=== PATIENT | female | born 2005 | race Caucasian/White ===

== ENCOUNTER 2023-05-08 15:45 | Inpatient (IN) | payer BC, SELFPAY ==
[2023-05-08] VITALS (33 sets, daily range): BP systolic 97–160; BP diastolic 44–93; PULSE 65–107; TEMP 36.3–36.6; BMI 36.9
--- NOTE | 2023-05-08 15:45 | LDADM ---
This patient, Olga Mark, was admitted to Labor/Delivery/Recovery 104 on 05/08/23 at 15:45. Plans for labor, pain management and were discussed with patient. Patient/family oriented to hospital policies and general routines including ID bracelet, bed and alarms, visiting hours, pain management, procedures, bathroom and other care routines, personal items, smoking policy, room service/diet and guest tray routines, infant security routines, and visiting hours. Patient/Family are encouraged to report perceived risks to care and to ask questions if they do not understand what they are told or what they should do. See OBIX for further documentation.
[2023-05-08 16:25] LABS: Basophils Percent Auto 0.2 % (0.2-1.2); Eosinophils Percent Auto 0.2 % (0-4.4); Hematocrit 33.5 % (37.0-47.0); Hemoglobin 10.7 g/dL (12.0-15.0); Immature Granulocyte Absolute 0.05 K/mm3 (0.00-0.031); Immature Granulocyte Percent A 0.5 % (0-0.5); Lymphocytes Absolute Auto 2.38 K/mm3 (0.9-3.2); Lymphocytes Percent Auto 21.6 % (18.3-44.2); Mean Corpuscular HGB Conc 31.9 g/dl (32-36); Mean Corpuscular Hemoglobin 25.8 pg (26-34); Mean Corpuscular Volume 80.7 fl (80-100); Mean Platelet Volume 11.7 fl (7.4-10.4); Monocytes Absolute Auto 0.8 K/mm3 (0.1-0.6); Monocytes Percent Auto 7.2 % (2.6-8.5); Neutrophils Absolute Auto 7.8 K/mm3 (1.3-6.7); Neutrophils Percent Auto 70.3 % (45.5-73.1); Platelet Count Result 226 k/mm3 (150-375); Red Blood Count 4.15 M/mm3 (4.2-5.4); Red Cell Distribution Width 14.4 % (11.5-14.5)
[2023-05-08] MEDS: miSOPROStol 25 MCG TABLET PO (16:43)
[2023-05-08] MEDS: OXYTOCIN 30 UNITS/NS 500 ML 30 UNITS/500 ML BAG IV CONT (21:30)
[2023-05-08] MEDS: LACTATED RINGERS 1,000 ML 125 ML IV CONT (21:30)
[2023-05-09] VITALS (171 sets, daily range): BP systolic 97–145; BP diastolic 49–97; PULSE 55–145; RESP 18; TEMP 36.5–37.2; O2SAT 95–100
[2023-05-09] MEDS: LACTATED RINGERS 1,000 ML 125 ML IV CONT (04:45)
[2023-05-09] MEDS: OXYTOCIN 30 UNITS/NS 500 ML 30 UNITS/500 ML BAG IV CONT (05:01)
--- NOTE | 2023-05-09 07:14 | PM.IMHP ---
H&P: HPI History of Present Illness Date/Time: 05/09/23 07:14 Chief Complaint: induction of labor Narrative: Olga is a 17yo G1 at 39.3 for IOL. Received cytotec x1 last night, then pitocin overnight. GBS neg. complicated by LGA. Unable to nut picker contractions overnight so RN switched bag of pitocin and started over at 2mu. Review of Systems Review of Systems: All systems reviewed & are unremarkable except as noted in HPI and below PMFSH Family History Family History (Updated 04/18/23 @ 12:22 by Angela Holguin, JOSH) Other Unknown family medical history Social History Social History Smoking status: Former smoker Tobacco type: e-cigarettes/vaping Additional smoking assessment comments: 2 years of vaping Substance use: never Lack of Transportation: No Lack of Food: Never True Current Housing: I Have Housing Concerned About Future Housing: No Difficulty Paying Gas/Electric Bills: No Difficulty Paying for Meds: No Currently Unemployed: No Education: High School Diploma/GED Difficulty w/ Childcare or Family Care: No Spiritual care concerns: No Meds Home Medications and Allergies Home Medications Medication Instructions Recorded Confirmed Type vit#24-iron amino acid 1 tablet PO DAILY 04/18/23 04/18/23 History chelat-folic acid 30 mg-975 mcg tablet Allergies Allergy/AdvReac Type Severity Reaction Status Date / Time No Known Allergies Allergy Verified 04/18/23 12:20 Vital Signs Vital Signs - 24 hr 05/08/23 16:28 05/08/23 16:32 05/08/23 16:46 Temperature Pulse Rate 107 H 92 80 Blood Pressure 120/80 109/73 124/73 Oxygen Delivery 05/08/23 17:01 05/08/23 17:16 05/08/23 17:31 Temperature Pulse Rate 93 89 89 Blood Pressure 128/70 129/54 L 109/65 Oxygen Delivery 05/08/23 17:46 05/08/23 18:01 05/08/23 18:00 Temperature 97.3 F L Pulse Rate 89 76 Blood Pressure 125/68 118/67 Oxygen Delivery 05/08/23 18:16 05/08/23 18:31 05/08/23 18:48 Temperature Pulse Rate 89 74 69 Blood Pressure 129/79 137/74 104/68 Oxygen Delivery 05/08/23 19:01 05/08/23 19:16 05/08/23 19:31 Temperature Pulse Rate 76 71 74 Blood Pressure 130/67 136/73 136/75 Oxygen Delivery 05/08/23 19:46 05/08/23 20:01 05/08/23 20:16 Temperature Pulse Rate 65 75 88 Blood Pressure 110/44 L 133/77 131/84 Oxygen Delivery 05/08/23 20:31 05/08/23 20:46 05/08/23 16:45 Temperature Pulse Rate 77 78 Blood Pressure 135/83 133/78 Oxygen Delivery Room Air 05/08/23 21:01 05/08/23 21:31 05/08/23 20:00 Temperature 98 F Pulse Rate 81 72 Blood Pressure 124/73 144/93 H Oxygen Delivery 05/08/23 21:46 05/08/23 22:03 05/08/23 22:16 Temperature Pulse Rate 74 69 80 Blood Pressure 160/93 H 97/55 L 111/69 Oxygen Delivery 05/08/23 22:31 05/08/23 22:46 05/08/23 23:01 Temperature Pulse Rate 74 74 67 Blood Pressure 118/73 115/78 118/65 Oxygen Delivery 05/08/23 23:16 05/08/23 23:31 05/08/23 23:46 Temperature Pulse Rate 71 68 70 Blood Pressure 126/72 113/64 117/68 Oxygen Delivery 05/09/23 00:02 05/09/23 00:16 05/09/23 00:31 Temperature Pulse Rate 64 63 63 Blood Pressure 109/54 L 125/77 120/73 Oxygen Delivery 05/09/23 00:46 05/09/23 01:01 05/09/23 01:16 Temperature Pulse Rate 71 68 76 Blood Pressure 122/73 134/79 114/72 Oxygen Delivery 05/09/23 01:31 05/09/23 01:46 05/09/23 02:01 Temperature Pulse Rate 87 85 65 Blood Pressure 116/74 129/88 117/74 Oxygen Delivery 05/09/23 02:16 05/09/23 02:31 05/09/23 02:46 Temperature Pulse Rate 55 L 64 58 L Blood Pressure 128/84 129/86 130/86 Oxygen Delivery 05/09/23 03:01 05/09/23 03:16 05/09/23 03:31 Temperature Pulse Rate 58 L 58 L 65 Blood Pressure 128/72 129/72 128/80 Oxygen Delivery 05/09/23 03:46 05/09/23 04:01 05/09/23 04:16 Temperature Pulse Rate 72 66 71
[2023-05-09] MEDS: LACTATED RINGERS 1,000 ML 999 ML IV CONT (10:16)
--- NOTE | 2023-05-09 10:54 | WPDANESEPPF ---
Anes - Initial Pre Proc Eval Procedure: labor epidural Date/Time: 05/09/23 10:54 Surgeon: Meenu Palomares MD Pre Op Diagnosis: labor pain Pre Op Diagnosis: Induction of Labor Patient Data Age: 17 Gender: F Height: 1.7 m Weight: 107 kg Last Vital Signs Temp 36.5 C 05/09/23 10:36 Pulse 75 05/09/23 10:51 BP 122/72 05/09/23 10:51 Pulse Ox 97 05/09/23 10:52 O2 Del Method Room Air 05/08/23 16:45 Allergies Allergy/AdvReac Type Severity Reaction Status Date / Time No Known Allergies Allergy Verified 04/18/23 12:20 Home Medications Medication Instructions Recorded Confirmed Type vit#24-iron amino acid 1 tablet PO DAILY 04/18/23 04/18/23 History chelat-folic acid 30 mg-975 mcg tablet Laboratory Tests 05/08/23 16:07 WBC 11.0 H K/mm3 (4.5-10.0) RBC 4.15 L M/mm3 (4.2-5.4) Hgb 10.7 L g/dL (12.0-15.0) Hct 33.5 L % (37.0-47.0) MCV 80.7 fl (80-100) MCH 25.8 L pg (26-34) MCHC 31.9 L g/dl (32-36) RDW 14.4 % (11.5-14.5) Plt Count 226 k/mm3 (150-375) MPV 11.7 H fl (7.4-10.4) Immature Gran % (Auto) 0.5 % (0-0.5) Neut % (Auto) 70.3 % (45.5-73.1) Lymph % (Auto) 21.6 % (18.3-44.2) [place] % (Auto) 7.2 % (2.6-8.5) Eos % (Auto) 0.2 % (0-4.4) Baso % (Auto) 0.2 % (0.2-1.2) Lymph # (Auto) 2.38 K/mm3 (0.9-3.2) [place] # (Auto) 0.8 H K/mm3 (0.1-0.6) Eos # (Auto) 0.0 K/mm3 (0-0.3) Baso # (Auto) 0.0 K/mm3 (0.0-0.1) Abs Immat Gran (auto) 0.05 H K/mm3 (0.00-0.031) Absolute Neuts (auto) 7.8 H K/mm3 (1.3-6.7) Absolute Nucleated RBC 0.0 K/mm3 (0.0-0.012) Nucleated RBC % 0.0 % (0.0-0.2) RPR Pending Blood Type O Positive Antibody Screen Negative Patient hx anesthesia problems: none Family hx anesthesia problems: none Results Review: All pre-operative results and documents have been reviewed as part of the pre-operative evaluation. [facility] Family History Family History (Updated 04/18/23 @ 12:22 by Angela Holguin RN) Other Unknown family medical history Social History Social History Smoking status: Former smoker Tobacco type: e-cigarettes/vaping Additional smoking assessment comments: 2 years of vaping Substance use: never Lack of Transportation: No Lack of Food: Never True Current Housing: I Have Housing Concerned About Future Housing: No Difficulty Paying Gas/Electric Bills: No Difficulty Paying for Meds: No Currently Unemployed: No Education: High School Diploma/GED Difficulty w/ Childcare or Family Care: No Spiritual care concerns: No Anes - Eval Final PreProcedure Day of Procedure 05/09/23 10:54 Patient weight: obese ASA classification: II Anesthetic plan: proceed Anesthesia type and monitoring: regional epidural and standard monitoring Results Review: All pre-operative results and documents have been reviewed as part of the pre-operative evaluation. Informed Consent: The patient's anesthetic plan and its attendant risks and benefits were discussed with the patient/family/POA. Questions were solicited and answers provided to the satisfaction of the patient/family/POA.
[2023-05-09 15:36] LABS: Rapid Plasma Reagin Non-Reactive (NonReactive)
--- NOTE | 2023-05-09 17:28 | P.PCNOB_ITS ---
OB - Delivery Note Procedure Delivery date: 05/09/23 Procedure: Events: Elective Induction of Labor Intrapartal Events: Decelerations Induction method: AROM, Per Misoprostol Protocol and Per Pitocin Protocol Delivery augmentation: Rupture of Membranes Delivery monitor: External FHT and Internal Uterine Route of delivery: Episiotomy description: None Laceration Description: Perineal - 1st Degree Delivery repair: vicryl Quantitative Blood Loss (ml): 180 Anesthesia type: Epidural Disposition: Floor Complications: shoulder dystocia, see delivery note Narrative: With adequate expulsive efforts by the mother, the baby's head was delivered OA. The turtle sign was identified and shoulder dystocia was encountered. A nuchal cord was reduced. With McRobert's and suprapubic pressure the anterior shoulder was delivered under the pubic symphysis. The posterior shoulder and the rest of the baby delivered without difficulty. Shoulder dystocia was less than 20 seconds. The was placed on the mothers chest and suctioned and stimulated. The cord was clamped and cut after 30 seconds. Mother and baby both stable. [place] Baby Date of : 05/09/23 Time of : 17:11 Weeks of gestation at delivery: 39 Infant gender: Male Weight (pounds): 8 Weight (ounces): 5 presentation: vertex Placenta delivery description: Spontaneous Cord Vessel Description: 3 Vessels, Nuchal Cord and Clamped/Cut score one minute: 8 score five minutes: 9
[2023-05-09] MEDS: OXYTOCIN 30 UNITS/NS 500 ML 30 UNITS/500 ML BAG 125 UNITS IV CONT (17:39)
[2023-05-09] MEDS: WITCH HAZEL 40 PADS 1 PAD TOPICAL (19:45)
[2023-05-09] MEDS: BENZOCAINE 20% AER SPR (*SP) 56 GM CAN 1 SPRAY TOPICAL (19:45)
--- NOTE | 2023-05-09 19:50 | ADMGEN ---
This patient, Olga Mark, was admitted to OB 2nd Floor Room 286-00. Patient/family oriented to hospital policies and general routines including ID bracelet, bed and alarms, visiting hours, pain management, procedures, bathroom and other care routines, personal items, smoking policy, room service/diet, and visiting hours. Information on how to activate the Rapid Response Team has been discussed. Patient/Family are encouraged to report perceived risks to care and to ask questions if they do not understand what they are told or what they should do.
[2023-05-10 05:04] LABS: Hematocrit 31.5 % (37.0-47.0)
[2023-05-10] MEDS: DOCUSATE SODIUM 100 MG CAPSULE PO ×2 (07:19→17:27)
[2023-05-10] MEDS: MULTIVIT/MIN/PREN/FOL AC/IRON TABLET 1 TAB PO (07:19)
[2023-05-10] MEDS: IBUPROFEN 600 MG TABLET PO ×2 (07:19→17:27)
[2023-05-10] MEDS: LANOLIN (LANSINOH) 7.5 GM CREAM 1 APPLIC TOPICAL (07:20)
[2023-05-10 07:35] VITALS: BP 135/101; PULSE 74; RESP 16; TEMP 35.8; O2SAT 98
--- NOTE | 2023-05-10 09:52 | PM.OBPNVD ---
OB - PN: Subj Subjective Date/time seen: 05/10/23 09:52 Patient comments: no complaints, pain well controlled and tolerating diet [place] baby status: doing well and nursing well [place] feeding status: exclusively breast feeding OB - PN: Obj Data Labs 05/10/23 04:35 Labs: Laboratory Results - last 24 hr 05/08/23 05/10/23 16:07 04:35 Hgb 10.0 L Hct 31.5 L RPR Non-reactive OB - PN A/P Plan day: 1 Plan: routine care Comments: consented for circumcision and circumcision completed home tomorrow Time Spent With Patient Time: Total time spent is greater than 50% in coordination of care (as documented) at patient's floor/unit and/or counseling patient: Time with patient: less than 15 minutes Exam Narrative: NAD abdomen soft, nontender, fundus firm below the umbilicus Extremities nontender, 1+ edema
--- NOTE | 2023-05-10 12:09 | PC.NURSE ---
1135 - 1140 Purposefully rounded to introduce myself and assess latch that the Primary RN had assisted with. Visualized mother holding infant upright over her right shoulder patting infant. Assess mother for needs and mother states infant didn't stay latched and they just fed the infant part of a bottle. Resources provided for inpatient services with name written on the white board. Mother voiced understanding of information and will call if there is a request for assistance. Reported to the primary RN.
[2023-05-10 12:13] VITALS: BP 118/71; PULSE 67; RESP 16; TEMP 36.7; O2SAT 100
--- NOTE | 2023-05-10 16:27 | WPDANLDPN2 ---
Anes-Prog Note L&D Date/Time: 05/10/23 16:27 Comfortable throughout: labor and delivery Neuraxial method: epidural Epidural/Spinal procedure site: clean & non-tender Neuro status: Neuro function grossly intact. Cardiovascular status: normal Respiratory status: normal Airway patency: baseline Mental status: baseline Post-Op hydration status: normal Vital Signs: Last Vital Signs Temp 36.7 C 05/10/23 12:13 Pulse 67 05/10/23 12:13 Resp 16 05/10/23 12:13 BP 118/71 05/10/23 12:13 Pulse Ox 100 05/10/23 12:13 O2 Del Method Room Air 05/09/23 19:50 Pain score (VAS): 3/10 Post-procedural complaints: none Patient feedback: Patient satisfied with anesthetic care.
[2023-05-10] MEDS: WITCH HAZEL 40 PADS 1 PAD TOPICAL (17:26)
[2023-05-10 20:45] VITALS: BP 137/89; PULSE 66; RESP 18; TEMP 36
[2023-05-11] MEDS: IBUPROFEN 600 MG TABLET PO ×2 (01:54→11:04)
--- NOTE | 2023-05-11 04:28 | PM.OBPNVD ---
OB - PN: Subj Subjective Date/time seen: 05/11/23 04:28 doing well no complaints would like d/c home OB - PN: Obj Data Labs 05/10/23 04:35 Labs: Laboratory Results - last 24 hr 05/10/23 04:35 Hgb 10.0 L Hct 31.5 L OB - PN A/P Plan day: 2 Plan: routine care and discharge home Time Spent With Patient Time: Total time spent is greater than 50% in coordination of care (as documented) at patient's floor/unit and/or counseling patient: Review of Systems Review of Systems: All systems reviewed & are unremarkable except as noted in HPI and below Exam Const: General: cooperative and healthy appearing Chest: Chest palpation & inspection: normal inspection of the chest Resp: Effort & Inspection: normal respiratory effort Cardio: Rate: regular rate Rhythm: regular rhythm GI: Other: soft Skin: General skin exam: normal color Neuro: General: patient oriented x3 Extrem: Right lower extremity: normal to inspection Left lower extremity: normal to inspection
--- NOTE | 2023-05-11 04:30 | PC.NURSE ---
Patient instructed to view the discharge video Mother & Baby Care, The First Two Weeks . Patient was given the opportunity and encouraged to ask questions. Patient verbalized understanding of information shared and has been given the mother/baby guide for home reference.
--- NOTE | 2023-05-11 04:31 | PM.OBDSVD ---
DS: Admitting Diagnosis Discharge Date 05/11/23 Admitting Diagnosis IOL DS: Discharge Diagnosis Discharge Diagnosis (1) Vaginal delivery: Code(s): O80 - Encounter for full-term uncomplicated delivery Status: Acute OB - DS: Summary OB Procedures : None OB Procedures Intrapartum: Spontaneous Vag Delivery OB Procedures: : None Time Spent with Patient Time attestation: Total time spent providing and/or coordinating discharge services: DS: Data Data Completed and Pending Labs on day of discharge: Labs from last 24 hours 05/10/23 04:35 Hgb 10.0 L Hct 31.5 L Discharge Plan Discharge Attending physician on discharge: Velia Louis Discharging Clinician: Chelsie Hebert Patient Disposition: Home, Self-Care Activity: pelvic rest Diet: regular Patient Instructions: Antibiotic Form Stand Alone Forms: General Discharge Information Follow-up/Referrals: Meenu Palomares MD [Physician] - 4 Weeks Discharge Medications: New ibuprofen 600 mg Tablet 600 mg PO Q6H PRN (Reason: Cramping) Qty: 30 0RF Continued Complete 30-975 mg-mcg Tablet 1 tablet PO DAILY Date of admission: 05/08/23 15:45 Primary Care Provider: PHYSICIAN,TARIFF COMPILING CLERK Admitting Provider: Meenu Palomares Attending physician on admission: Meenu Palomares Condition: Stable
--- NOTE | 2023-05-11 07:00 | PC.NURSE ---
PT introductions made and plan of care discussed per post , pain management, breast bottle feeding, daily care activities and pending discharge to home. PT and fob both recipients of such instructions and no barriers to learning identified at this time. PT received such instructions per one to one discussion, mom baby care guide and demonstrations this shift. PT verbalized understanding of such care.
[2023-05-11 07:25] VITALS: BP 131/86; PULSE 81; RESP 16; TEMP 36.5; O2SAT 100
[2023-05-11 10:30] VITALS: PULSE 81; RESP 16; O2SAT 100
[2023-05-11] MEDS: ACETAMINOPHEN 325 MG TABLET 650 MG PO (11:03)
[2023-05-11] MEDS: MULTIVIT/MIN/PREN/FOL AC/IRON TABLET 1 TAB PO (11:04)
[2023-05-11] MEDS: DOCUSATE SODIUM 100 MG CAPSULE PO (11:04)
--- NOTE | 2023-05-11 13:00 | PC.NURSE ---
PT received discharge instructions per protocol and verbalized understanding of such care.
--- NOTE | 2023-05-11 13:30 | PC.NURSE ---
PT discharged to home ambulatory accompanied by fob and infant and taken to waiting car. Follow up appts confirmed
[2023-05-12 08:21] VITALS: BP 129/71; PULSE 67; RESP 16; TEMP 36.7; O2SAT 100
== END 2023-05-11 13:30 | disposition home or self-care (01) | DRG 807 ==
LOC: ANHLDR 15:50 → ANHOB2 05-09 20:05
PROVIDERS: Admitting Provider Obstetrics & Gynecology; Visit Provider Obstetrics & Gynecology
DX: O36.63X0 Maternal care for excessive fetal growth, third trimester, not applicable or unspecified (principal); Z37.0 Single live birth; O70.0 First degree perineal laceration during delivery; O76 Abnormality in fetal heart rate and rhythm complicating labor and delivery; O66.0 Obstructed labor due to shoulder dystocia; O69.81X0 Labor and delivery complicated by cord around neck, without compression, not applicable or unspecified; Z3A.39 39 weeks gestation of pregnancy
CPT/HCPCS: 36415; 85014; 85018; 85025; 86592; 86850; 86900; 86901; A9270; J2590; J2795; J7120

== ENCOUNTER 2023-11-21 15:40 | Emergency (ER) | payer BC, SELFPAY ==
--- NOTE | ~2023-11-21 | XR_ITS ---
XR ankle RT min 3V DATE: 11/21/2023 16:13 INDICATION: Injury TECHNIQUE: 4 views COMPARISON: None FINDINGS: No fracture or dislocation of the ankle or disruption of the ankle mortise. No periosteal r eaction or bone destruction. IMPRESSION: Negative Reviewed, dictated and finalized at location L. IMPRESSION: Negative
[2023-11-21 15:54] VITALS: BP 140/100; PULSE 80; RESP 17; TEMP 36.6; O2SAT 100
--- NOTE | 2023-11-21 16:20 | ED.LOWEXIN ---
HPI - Extremity Injury (Lower) General Chief Complaint: Extremity Injury, Lower Stated Complaint: right ankle pain Time Seen by Provider: 11/21/23 16:19 Source: patient Mode of arrival: ambulatory Limitations: no limitations History of Present Illness HPI Narrative: Patient is a 18-year-old female who presents the ED with report of right ankle pain. Patient reports she missed a step on her stairs at her house and her right ankle bent backwards underneath of her. She complains of pain and swelling to her right ankle. Reports difficulty ambulating due to pain. Denies numbness. Denies any other injuries or areas of pain. She took Advil prior to arrival. Related Data Home Medications Medication Instructions Recorded Confirmed vit#24-iron amino acid 1 tablet PO DAILY 04/18/23 04/18/23 chelat-folic acid 30 mg-975 mcg tablet Allergies Allergy/AdvReac Type Severity Reaction Status Date / Time No Known Allergies Allergy Verified 11/21/23 15:41 Review of Systems Review of Systems: CONSTITUTIONAL: Denies fever, chills, or sweats. MUSCULOSKELETAL: See HPI. NEUROLOGIC: Denies numbness, or weakness. All systems reviewed & are unremarkable except as noted in HPI and below [facility] Family History Family History Other Unknown family medical history Social History Social History Smoking status: Former smoker Tobacco type: e-cigarettes/vaping Additional smoking assessment comments: 2 years of vaping Substance use: never Lack of Transportation: No Lack of Food: Never True Current Housing: I Have Housing Concerned About Future Housing: No Difficulty Paying Gas/Electric Bills: No Difficulty Paying for Meds: No Currently Unemployed: No Education: High School Diploma/GED Difficulty w/ Childcare or Family Care: No Spiritual care concerns: No Exam Narrative: GENERAL: Well appearing, obese with BMI of 33.7, non-toxic, in no acute distress. HEAD: Normocephalic, atraumatic. RESPIRATORY: Airway patent, respirations nonlabored. CARDIOVASCULAR: Regular rate and rhythm. Pedal pulses easily palpable. MUSCULOSKELETAL: Moves all extremities. Limited range of motion of right ankle due to pain. Swelling to R ankle lateral malleoli and across anterolateral dorsal foot. Diffuse tenderness to palpation throughout R lateral malleoli. No significant tenderness along medial malleoli or along 5th metatarsal. No tenderness to right knee. SKIN: Warm, dry, normal color. NEURO: A&O X3. Speech clear. Mildly antalgic gait. No ataxic movements. PSYCHIATRIC: Appropriate mood and affect. Normal interaction. Course Vital Signs Vital signs: Vital Signs Temperature 97.8 F 11/21/23 15:54 Pulse Rate 80 11/21/23 15:54 Respiratory Rate 17 11/21/23 15:54 Blood Pressure 140/100 H 11/21/23 15:54 Pulse Oximetry 100 11/21/23 15:54 Oxygen Delivery Room Air 11/21/23 15:54 Temperature 97.8 F 11/21/23 15:54 Pulse Rate 80 11/21/23 15:54 Respiratory Rate 17 11/21/23 15:54 Blood Pressure 140/100 H 11/21/23 15:54 Pulse Oximetry 100 11/21/23 15:54 Oxygen Delivery Room Air 11/21/23 15:54 MDM - Extremity Injury (Lower) MDM Narrative Medical decision making narrative: Patient?s injury is consistent with musculoskeletal etiology. No signs of neurologic or vascular compromise on physical examination. Compartments are soft without signs of compartment syndrome. XR negative for fracture, consistent with ankle sprain. Patient is felt to be stable for discharge home and further outpatient management and treatment. Given Bishop bandage and crutches in the ED. Discussed rice treatment, follow-up with orthopedics, given return precautions. Discharged in stable condition. Medical Records Attestation: I reviewed the patient's medical records. [facility]
[2023-11-21] MEDS: ACETAMINOPHEN 500 MG TABLET 1000 MG PO (16:32)
== END 2023-11-21 16:41 | disposition home or self-care (01) ==
LOC: ANHED 16:35
PROVIDERS: Emergency Provider Physician Assistant; Referring Provider Family Medicine
DX: S93.401A Sprain of unspecified ligament of right ankle, initial encounter (principal); Z87.891 Personal history of nicotine dependence; X50.9XXA Other and unspecified overexertion or strenuous movements or postures, initial encounter
CPT/HCPCS: 73610; 99283; A9270

== ENCOUNTER 2024-04-17 13:43 | Outpatient (CLI) | payer BC, SELFPAY ==
[2024-04-17 14:42] LABS: Basophils Percent Auto 0.3 % (0.2-1.2); Eosinophils Absolute Auto 0.1 K/mm3 (0-0.3); Eosinophils Percent Auto 0.5 % (0-4.4); Hematocrit 38.9 % (37.0-47.0); Immature Granulocyte Absolute 0.03 K/mm3 (0.00-0.031); Immature Granulocyte Percent A 0.3 % (0-0.5); Lymphocytes Absolute Auto 3.61 K/mm3 (0.9-3.2); Lymphocytes Percent Auto 37.8 % (18.3-44.2); Mean Corpuscular HGB Conc 33.4 g/dl (32-36); Mean Corpuscular Hemoglobin 27.5 pg (26-34); Mean Corpuscular Volume 82.2 fl (80-100); Mean Platelet Volume 11.3 fl (7.4-10.4); Monocytes Absolute Auto 0.6 K/mm3 (0.1-0.6); Monocytes Percent Auto 6.2 % (2.6-8.5); Neutrophils Absolute Auto 5.3 K/mm3 (1.3-6.7); Neutrophils Percent Auto 54.9 % (45.5-73.1); Platelet Count Result 261 k/mm3 (150-375); Red Blood Count 4.73 M/mm3 (4.2-5.4); Red Cell Distribution Width 12.6 % (11.5-14.5); White Blood Count 9.6 K/mm3 (4.5-10.0)
[2024-04-17 14:49] LABS: Alanine Aminotransferase 29 U/L (6-35); Albumin Level 4.5 g/dL (3.5-5.1); Alkaline Phosphatase 80 U/L (38-126); Anion Gap 15 mmol/L (4-12); Aspartate Amino Transferase 45 U/L (14-36); Bilirubin,Total 0.2 mg/dL (0.2-1.3); Blood Urea Nitrogen 12 mg/dL (7-17); Calcium 9.4 mg/dL (8.4-10.2); Carbon Dioxide 20 mmol/L (22-30); Chloride 104 mmol/L (98-107); Cholesterol 203 mg/dL (0-200); Estimated Glomerular Filt Rate > 60; Glucose 100 mg/dL (65-110); HDL Direct 45 mg/dL; Potassium 3.5 mmol/L (3.4-5.0); Sodium 139 mmol/L (137-145); Triglycerides 472 mg/dL (<150)
[2024-04-17 15:00] LABS: LDL Cholesterol Direct 99 mg/dL
[2024-04-17 15:04] LABS: Hemoglobin A1C 5.2 % (<5.7)
[2024-04-17 15:15] LABS: Iron 43 ug/dL (37-170)
[2024-04-17 15:26] LABS: Percent Iron Saturation 10 % (20-50)
[2024-04-17 15:41] LABS: Add Urine Microscopic? YES; Appearance Urine Clear (Clear); Bacteria Urine Rare /hpf; Bilirubin Urine Negative (Negative); Blood Urine Negative (Negative); Color Urine Yellow (Yellow); Glucose Urine UA Negative (Negative); Ketones Urine Negative (Negative); Leukocyte Esterase Ur Trace LEU/UL (Negative); Nitrate Urine Negative (Negative); Non Pathogenic Casts 0-2; Protein Urine Negative (Negative); RBC Urine 0-2 /hpf (0-2); Specific Grav Ur 1.029 (1.001-1.035); Squamous Epithelial Cell Urine Occasional /hpf (Few); Urobilinogen Urine 0.2 mg/dL (<2.0); pH Urine 5.5 (5.0-9.0)
== END 2024-04-17 13:44 | disposition home or self-care (01) ==
LOC: ANHLAB 13:44
PROVIDERS: PCP Nurse Practitioner Family; Visit Provider Nurse Practitioner Family
DX: D64.9 Anemia, unspecified (principal); Z00.00 Encounter for general adult medical examination without abnormal findings; Z13.1 Encounter for screening for diabetes mellitus; Z68.39 Body mass index [BMI] 39.0-39.9, adult; Z13.6 Encounter for screening for cardiovascular disorders; Z13.29 Encounter for screening for other suspected endocrine disorder
CPT/HCPCS: 36415; 80053; 80061; 81001; 82728; 83036; 83540; 83550; 84443; 85025

== ENCOUNTER 2024-11-10 16:15 | Observation (INO) | payer BC, SELFPAY ==
--- OUTSIDE RECORDS SUMMARY | 2024-11-10 16:20 | XMS_ITS | Data Portability ---
Author Organization [facility] Moss Address [address] [place] [address] Care Team Providers Care Full Time Name Role Phone NGUYEN COOPER Primary Care Provider Assessment No assessment recorded. Plan of Treatment Reminders Order Date Submit Date Provider Last Modified By Organization Details Last Modified Time Details Appointments OB ROUTINE 2024 01:15P Nancy VIGIL MD Not available Not available Not available Lab glucose tolerance test, gestation al panel [address] [place] [address] (Lab), [address] [facility], [place], [address], 10/30/2024 19:11:38 hematocri t, blood [address] [place] [address] (Lab), [address] [facility], [place], [address], 10/30/2024 19:11:37 hemoglobi n (Hb), blood [address] [place] [address] (Lab), [address] [place], [address], 10/30/2024 19:11:37 HIV 1+2 AB + HIV 1 p24 Ag, qualitati ve immunoass ay, serum [address] [place] [address] (Lab), [address] [facility], [place], [address], 10/30/2024 19:11:37 Referral None recorded. Procedures None recorded. Surgeries None recorded. Imaging US, obstetric , follow-up 2024 025 [email or web address] [address], [address], [place], [address], 10/29/2024 23:00:35 US, obstetric , follow-up 2024 025 [email or web address] [address], [address], [place], [address], 10/08/2024 23:03:15 US, obstetric , 2nd or 3rd trimester 2024 025 [email or web address] [address], [address], [place], [address], 09/10/2024 21:20:04 Medication Orders None recorded. Patient TargetsNo targets recorded. Patient InstructionsNo instructions recorded. Reason for Referral None Reported. Results Created Date Observation Date Name Description Value Unit Range Abnormal Flag Note LastModifiedBy Organization Detail LastModifiedTime 10/29/1910/29/2024 HEMAT OCRIT (HCT) HCT 36.1 % (based on docume nted legal sex) 34.0-4 5.0 Not Available [facility] (Lab) [address] [facility], [place], [address], 10/30/2024 19:11:37 10/29/19 25 10/29/2024 HEMOG LOBIN (HGB) HGB 11.3 g/dL (based on docume nted legal sex) 11.6-1 5.4 low Not Available [facility] (Lab) [address] [facility], [place], [address], 10/30/2024 19:11:37 10/29/1910/29/2024 HIV 1/2 ANTIG EN/AN TIBOD Y, REFLE X CONFI RMATI ON HIV antigen/anti body Nonrea ctive nonrea ctive HIV-1 antig en and HIV-1 /HIV- 2 antib odies were not detec juan. No labor atory evide nce of HIV infec tion. Not Available [facility] (Lab) [address] [facility], [place], [address], 10/30/2024 19:11:37 10/29/19 25 10/29/2024 GTT - GESTA RAMON L JAVIER N, ACOG OB glucose, 1 hour screen 82 mg/dL 70-135 Not Available [facility] (Lab) [address] [facility], [place], [address], 10/30/2024 19:11:38 10/29/19 25 10/29/2024 RPR SCREE N, REFLE X TITER /CONF IRMAT ION RPR qualitative Nonrea ctive nonrea ctive Not Available [facility] (Lab) [address] [facility], [place], [address], 10/30/2024 19:11:38 09/10/19 25 09/10/2024 US, obste tric, 2nd or 3rd trime ster No observ ation record ed. [email or web address] [facility] [address], [place], [address], 09/10/2024 16:35:14 09/10/19 25 09/10/2024 US, obste tric, follo w-up No observ ation record ed. [email or web address] [address], [place], [address], 09/11/2024 09:21:03 10/08/19 25 10/08/2024 US, obste tric, follo w-up No observ ation record ed. [email or web address] [facility] [address], [place], [address], 10/08/2024 18:11:07 10/08/19 25 10/08/2024 US, obste tric, follo w-up No observ ation record ed. [address], [place], [address], 10/15/2024 09:55:08 10/29/19 25 10/29/2024 US, obste tric, follo w-up No observ ation record ed. [email or web address] [place] [address], [place], [address], 10/29/2024 16:44:03 10/29/19 25 10/29/2024 US, obste tric, follo w-up No observ ation record ed. [email or web address] [address], [place], [address], 10/31/2024 00:20:23 Result Notes None recorded. Problems Name Problem SNOMED Code Status Onset Date Resolution Date Notes Provider Name and Address Organization Details Recorded Time Pregnanc y 95535367 Completed 202205/15/2023 Maryann marcelino, [facility] 4 14:46:47 Urinary tract infectio n in pregnanc y 342619880 Completed [place] macrobid 12/02 Martell Cox [facility] 3 12:28:05 Uterine size for dates discrepa ncy 351778919 Completed US 36w Martell Cox [facility] 3 12:28:05 Large for gestatio n age fetus 397602273 Completed 94% at 36w Martell Cox [facility] 3 12:28:05 Pregnanc y 20794128 Active 2023 Maryann marcelino, [facility] 4 14:46:47 Past pregnanc y history of shoulder dystocia 781241489 Active <20 sec , 8lb 5 oz Chelsie Hebert, KRYSTLE [address], [place], [address], [facility] 4 14:57:13 Problem Notes None recorded. Procedures Surgical History None recorded. Imaging Results Imaging Date Name Status LastModified by Organiz ation Details LastModified Time 09/10/2024 US, obstetric, 2nd or 3rd trimester completed [facility] [address], [place], [address], 09/10/2024 16:35:14 09/10/2024 US, obstetric, follow-up completed [email or web address] [address], [place], [address], 09/11/2024 09:21:03 10/08/2024 US, obstetric, follow-up completed [email or web address] [facility] [address], [place], [address], 10/08/2024 18:11:07 10/08/2024 US, obstetric, follow-up completed [address], [place], [address], 10/15/2024 09:55:08 10/29/2024 US, obstetric, [email or web address] [address], [place], [address], 10/29/2024 16:44:03 10/29/2024 US, obstetric, follow-up completed [address], [place], [address], 10/31/2024 00:20:23 Procedure Notes None recorded. Medical Equipment None Reported. Allergies No known drug allergies Medications Name Sig Start Date Stop Date Status Note LastModified by Organization Details LastModified Time fluconazole 150 mg tablet TAKE 1 TABLET BY MOUTH EVERY 72 HOURS FOR 6 DAYS 05/30 completed Not Available Not Available Not Available amoxicillin 875 mg-potassiu m clavulanate 125 mg tablet 08/15 completed Not Available Not Available Not Available 1.5/30 (28) 1.5 mg-30 mcg (21)/75 mg (7) tablet TAKE 1 TABLET BY MOUTH EVERY DAY 06/03 completed Not Available Not Available Not Available nitrofurant oin monohydrate /macrocryst als 100 mg capsule Take 1 capsule every 12 hours by oral route as directed for 7 days. 08/15 completed Not Available Not Available Not Available active Not Available Not Avai lable Not Available Vitals Date Recorded Body height Body mass index (BMI) Body weight Systolic blood pressure Diastolic blood pressure Provider Name and Address Organization Details Last Updated DateTime 09/10/2024 172.09 cm 35.8 kg/m2 944229.6 1458 g 111 mm[Hg] 64 mm[Hg] [facility] 16:33:54 Date Recorded Body height Body mass index (BMI) Body weight Systolic blood pressure Diastolic blood pressure Provider Name and Address Organization Details Last Updated DateTime 10/08/2024 172.09 cm 36.5 kg/m2 043405.9 8406 g 118 mm[Hg] 81 mm[Hg] [facility] 5 17:40:20 Date Recorded Body height Body mass index (BMI) Body weight Systolic blood pressure Diastolic blood pressure Provider Name and Address Organization Details Last Updated DateTime 10/29/2024 172.09 cm 36.9 kg/m2 528103.7 6 g 126 mm[Hg] 76 mm[Hg] [facility] 14:40:45 Social History Question Answer Notes LastModified by Organizat ion Details LastModified Time Tobacco Smoking Status Never Smoker Sakshi Sequeiraney [facility] 05/30/2023 12:25:10 What Is Your Level Of Alcohol Consumption? None [email or web address] Information not available 11/14/2022 If You Are , What Was Your Level Of Alcohol Consumption Prior To ? Occasional [email or web address] Information not available 05/30/2023 How Many Years Have You Consumed Alcohol? 2 Information not available 11/28/2022 Are You Blind Or Do You Have Difficulty Seeing? No [email or web address] Information not available 11/14/2022 What Is Your Level Of Caffeine Consumption? Occasional Information not available 11/28/2022 How Much Tobacco Do You Chew? None [email or web address] Information not available 11/14/2022 In The 14 Days Before Symptom Onset, Have You Had Close Contact With A Laboratory-confir med COVID-19 While That Case Was Ill? No [email or web address] Information not available 11/14/2022 In The 14 Days Before Symptom Onset, Have You Had Close Contact With A Person Who Is Under Investigation For COVID-19 While That Person Was Ill? No [email or web address] Information not available 11/14/2022 Have You Been To An Area Known To Be High Risk For COVID-19? No Information not available 11/28/2022 Are You Currently Employed? Yes Information not available 10/29/2024 Are You Deaf Or Do You Have Serious Difficulty Hearing? No [email or web address] Information not available 11/14/2022 What Type Of Diet Are You Following? REGULAR [email or web address] Information not available 11/14/2022 Do You Or Have You Ever Used E-cigarettes Or Vape? Former User Of Electronic Cigarettes [email or web address] Information not available 05/30/2023 What Is The Highest Grade Or Level Of School You Have Completed Or The Highest Degree You Have Received? 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 No [email or web address] Information not available 11/14/2022 Do You Use Protection During Sex? Usually [email or web address] Information not available 11/14/2022 Do You Use Your Seat Belt Or Car Seat Routinely? Yes [email or web address] Information not available 11/14/2022 Are You Sexually Active? Yes [email or web address] Information not available 10/29/2024 Do You Have Smoke And Carbon Monoxide Detectors In Your Home? Yes [email or web address] Information not available 11/14/2022 How Much Tobacco Do You Smoke? No [email or web address] Information not available 11/14/2022 Do You Feel Stressed (tense, Restless, Nervous, Or Anxious, Or Unable To Sleep At Night)? [id number] [email or web address] Information not available 11/14/2022 Do You Use Any Illicit Or Recreational Drugs? No [email or web address] Information not available 11/14/2022 Do You Use Sunscreen Routinely? Yes Information not available 11/28/2022 Has Tobacco Cessation Counseling Been Provided? No [email or web address] Information not available 05/30/2023 Have You Used IV Drugs? No [email or web address] Information not available 11/14/2022 Do You Or Have You Ever Used Any Other Forms Of Tobacco Or Nicotine? Yes [email or web address] Information not available 05/30/2023 Sex: Unknown Functional Status Question Answer Note LastModified by Organizat ion Details LastModified Time Do you have difficulty walking or climbing stairs? No [email or web address] Information not available 05/30/2023 Are you able to walk? YESWOREST [email or web address] Information not available 11/14/2022 Are you able to care for yourself? Yes [email or web address] Information not available 05/30/2023 Do you have difficulty dressing or bathing? No [email or web address] Information not available 05/30/2023 What is your exercise level? Moderate [email or web address] Information not available 11/14/2022 Mental Status None recorded. Family History Relationship Description Onset Age of this Age Resolved Age Notes LastModified by Organization Details LastModified Time Paternal Grandmother Diabetes mellitus [email or web address] Not available 2024 14:40:08 Medical History Condition Response Allergies (Food, seasonal, environmental ) N Other N Breast Cancer N Drug/Latex Allergies/Reactions N Blood Transfusion N Dermatologic Disorders N Lung Disease N Defects or Inherited Disease N Breast Problem N Gestational Diabetes N Hematologic disorders N Anesthesia Complications N History of STI N Deep Vein Thrombosis N Polycystic ovary syndrome N Anxiety Disorder N Autoimmune disease N Arthritis N Infertility N Polyps N Acid Reflux (GERD) N History of abnormal pap N Cancer N Stroke N Varicosities N Neurologic/Epilepsy N Endometriosis N High Cholesterol N Headaches N Fibromyalgia N Kidney Disease N Heart Problems N Kidney or Bladder Problems N Thyroid Problems N GI Problems N Eating Disorder N Anemia N Art (IVF or FET) N Psychiatric Illness N Ovarian Cancer N Diabetes N Pulmonary (TB, Asthma) N Hepatitis/Liver Disease N No Past Medical History N Eczema N Urinary Tract Infection N Abuse/Domestic Violence N Asthma N Trauma/Violence N Depression/ depression N Heart Disease N Pre-Eclampsia N Hypertension N Osteoporosis N Thrombophilias N Gynecological History Statement/Question Response Date of Last Mammogram Flow Moderate Date of LMP N Was last menstrual period normal Y STIs/STDs N Date of Last Colonoscopy Abnormal Pap N On BCP's at Conception? Y HPV Vaccine N Colposcopy Duration of Flow (days) 4 Current Control Method Age at First Child 18 Are cycles usually normal Y Frequency of Cycle (Q days) 28 Sexually Active? Y Menses Monthly Y Date of DEXA bone scan Age of first menstrual cycle 13 Date of Last Pap Smear Sexual Problems? N LMP Definite N Obstetrics History GPAL:G 2 P 1 0 0 1 Type Value Full Term 1 Living 1 Total 2 Past Encounters Encounter ID Performer Location Encounter Start Date Encounter Closed Date Diagnosis/Indication Diagnosis SNOMED-CT Code Diagnosis ICD10 Code Diagnosis Note [id number] Jade Guerra [place] [address] [address] 11/14/2022 10:25:52 11/14/2022 12:06:06 Amenorrhea 94418145 N91.2 Venereal d isease screening 347164921 Z11.3 screening 2437 42461 Z36.89 Risk factors addressed: Tobacco Cessation, Safe Sexual Practices, environmen jonas, work hazards, travel restrictio ns, seat belt use.Eat a health well balanced diet, avoid alcohol, tobacco, and street drugs.Enga ge in daily low impact exercise, avoid temperatur e extremes, and cat, rodent, and bird feces.Avoi d travel to areas where zika virus is a concern.Of fered cf/sma/nip t. Testing to be done today with routine labs. Handouts given and discussed with patient. ildbirth classes recommende d.New OB sheet given.If previous , counseling . New ob in 2 weeks.Pt verbalizes that she understand s the importance of above instructio ns.All questions were answered.P atient reminded to have annual well woman examinatio n and address preventati ve healthcare . Genetic in vestigation procedure 34605989 Z31.430 Mass of axilla 821414288 R22.2 3cm enlarged axillary lump x 2 weeks. Ultrasound ordered. Warm compress 2-3x per day. Pt will call us 2 business days after imaging to ensure we have received the results. [id number] [facility] [address],[place] [address] 11/14/2022 10:26:58 11/14/2022 11:32:49 with uncertain dates 141317673 Z34.90 [id number] Vikas Louis MD [facility] [address],[place] [address] 11/28/2022 11:01:01 11/28/2022 12:43:26 Routine care 368830751 Z34.02 [id number] [facility] [address],[place] [address] 12/26/2022 09:20:32 12/26/2022 10:49:39 screening 375889285 Z36.89 [id number] Jade Guerra [facility] [address],[place] [address] 12/26/2022 09:20:56 12/26/2022 11:01:26 Routine care 954549694 Z34.92 [id number] Lisa Zhao [facility] [address],[place] [address] 01/23/2023 14:45:39 01/23/2023 16:05:56 screening 487505007 Z36.2 [id number] Meenu Malone MD [facility] [address],[place] [address] 01/23/2023 14:46:05 01/24/2023 14:48:23 Routine care 157733966 Z34.02 [id number] Meenu Malone MD [place] [address],[place] [address] 02/20/2023 11:19:54 02/21/2023 12:10:55 Routine care 349749374 Z34.02 [id number] Meenu Malone MD [facility] [address],[place] [address] 03/06/2023 11:07:07 03/06/2023 14:53:57 Routine care 913190968 Z34.02 Uterine si ze for dates discrepancy 301268756 O26.849 [id number] Meenu Malone MD [facility] [address],[place] [address] 03/20/2023 10:49:48 03/23/2023 12:50:07 Routine care 142200658 Z34.02 [id number] Meenu Malone MD [place] [address],[place] [address] 04/04/2023 12:30:00 04/04/2023 13:37:58 Routine care 747847686 Z34.02 Gestationa l proteinuria 10361935 O12.13 [id number] Lisa Zhao [facility] [address],[place] [address] 04/18/2023 11:19:25 04/18/2023 12:19:36 Uterine size for dates discrepancy 955343312 O26.843 Z3A.36 [id number] Meenu Malone MD [facility] [address],[place] [address] 04/18/2023 11:33:10 04/18/2023 12:25:23 Candidiasis of vagina 29667515 B37.31 Routine an tenatal care 046522698 Z34.02 Large for gestation age fetus 680318334 O36.63X1 [id number] Meenu Malone MD [facility] [address],[place] [address] 04/25/2023 17:02:13 04/25/2023 17:33:12 Routine care 753280402 Z34.02 Large for gestation age fetus 801243113 O36.63X1 [id number] Meenu Malone MD [facility] [address],[place] [address] 05/02/2023 11:57:13 05/03/2023 10:36:28 Large for gestation age fetus 652991718 O36.63X1 Routine an tenatal care 098532449 Z34.02 [id number] Meenu Malone MD [facility] [address],[place] [address] 05/30/2023 12:24:49 05/30/2023 13:43:46 care 404818042 Z39.2 Initial pr escription of oral contraception 941889437 Z30.011 [id number] EDWARD Kennedy [facility] [address] [address] 01/16/2024 13:41:18 01/16/2024 14:35:58 Gynecologic examination 22044617 Z01.419 WWEpap at 19declined STI screenenco uraged to est care with PCP Take Calcium with Vitamin D daily if not receiving in daily diet. It is strongly advised to have an annual flu shot and up can obtain at most pharmacies . If you have not had a TDap shot in the last 10 years you should obtain one as well. Discussed with patient & provided with informatio n regarding Gardisil vaccine to prevent the 4 strains for HPV that cause cervical cancer. Encourage safe sexual practices, to use condoms and limit partners if not already in a monogamous relationsh ip. Do monthly self breast exams. BRCA testing is now available for patients with strong genetic history of female cancer. If interested contact the office. Engage in regular exercise. Avoid tobacco, illicit drugs, and alcohol. This lifestyle behavior pattern will lead to less health conditions and longer life span. If BMI greater than 25 dietary consult advised. Pap smear is not recommende d prior to the age of 21. If you have any concerns, pelvic, or vaginal problems we can discuss testing. Patient received above instructio ns, and questions have been answered. If you have any questions please call or respond to this email. Patient was made aware of the patient portal and may obtain a paper copy of today's plan if desired. Contracept ion care management 271118670 Z30.9 desires to continue current OCPrefills sent x 12 months, r/b/a revieweden couraged to monitor BP, notify the office if elevated - pt verbalized understand [facility] [id number] Lisa Zhao [facility] [address] [address] 06/03/2024 13:39:31 06/03/2024 14:42:35 Uterine size for dates discrepancy 870263711 O26.841 Z3A.01 [id number] Vikas Louis MD [facility] [address],[place] [address] 06/03/2024 13:39:53 06/03/2024 15:19:47 Amenorrhea 49490896 N91.2 this patient is a 18 year-old multiparou s female at 12 weeks' gestation who presents for initial care. She has a history of term vaginal births. Her medical, surgical, obstetric history is unremarkab le. She is vaccinated . She was given precaution s recommenda tions for . We talked about vaccines in . Talked about care in detail. She is having genetic testing. She had a normal 12 week ultrasound . To begin routine care. [id number] [facility] [address],[place] [address] 06/25/2024 15:42:44 06/25/2024 16:28:55 [id number] Chelsie Hebert [facility] [address] [place] [address] 06/26/2024 17:49:21 06/27/2024 10:29:45 Amenorrhea 10250480 N91.2 Venereal d isease screening 230040810 Z11.3 [id number] Lisa [facility] [address] [place] [address] 07/08/2024 12:39:48 07/08/2024 15:02:58 screening 555815719 Z36.82 Z3A.11 [id number] Chelsie Hebert [facility] [address] [place] [address] 07/19/2024 13:40:41 07/19/2024 15:12:45 Gestation period, 13 weeks 03678119 Z3A.13 continue vitamin Routine an tenatal care 046675962 Z34.90 [id number] Vikas Louis MD [place] [address] [place] [address] 08/15/2024 11:35:59 08/15/2024 12:56:34 Routine care 516668860 Z34.02 [id number] Vikas Louis MD [facility] [address],[place] [address] 08/22/2024 14:32:52 08/22/2024 15:07:59 Routine care 899498420 Z34.02 [id number] [facility] [address],[place] [address] 09/10/2024 14:45:08 09/10/2024 16:01:22 screening for malformation 274090939 Z36.3 Z3A.20 [id number] MARCELLO VIGIL MD [facility] [address],[place] [address] 09/10/2024 14:45:24 09/11/2024 09:12:54 Shoulder girdle dystocia 49246444 O66.0 - hx of; 20sec with 94% fetus- unsure if desires PCS vs due to recurrence risk Gestation period, 20 weeks 30388093 Z3A.20 [id number] [facility] [address],[place] [address] 10/08/2024 16:45:40 10/08/2024 17:44:52 screening 144064428 Z36.2 Z3A.24 [id number] MARCELLO VIGIL MD [facility] [address],[place] [address] 10/08/2024 16:47:09 10/08/2024 18:16:31 Shoulder girdle dystocia 47128336 O66.0 - hx of; 20sec with 94% fetus- unsure if desires PCS vs due to recurrence risk Excessive growth affecting management of mother 50473037 O36.60X0 - EFW 91% at 24 weeks, repeat in 4 weeks Gestation period, 24 weeks 628503422 Z3A.24 [id number] [facility] [address],[place] [address] 10/29/2024 13:46:56 10/29/2024 14:43:18 screening 886486033 Z36.2 Z3A.27 [id number] MARCELLO VIGIL MD [facility] [address],[place] [address] 10/29/2024 13:47:20 10/30/2024 06:47:38 screening 980093797 Z36.89 Routine an tenatal care 435702219 Z34.82 Health Concerns Section Related Observation LastModified by Organization Detai ls LastModified Time None Recorded Concern Status LastModified by Organization Details LastModified Time None Recorded Advance Directives Directive None Recorded Payers Encounter Date Sequence Insurance Name Policy Number Policy Norman Covered Member ID Norman Member ID Guarantor Name 09/10/2024 1 [employer] [id number] Isaias Hemann [id number] Olga Hemann 10/08/2024 1 [employer] [id number] Isaias Hemann [id number] Olga Hemann 10/08/2024 1 [employer] [id number] Isaias Hemann [id number] Olga Hemann 10/29/2024 1 [place] [id number] Isaias Hemann [id number] 55 Olga Hemann 10/29/2024 1 [place] [id number] Isaias Hemann [id number] Olga Hemann OBGyn Episode Ob Episode Information Episode Created Date Number of Fetuses Patient Bloodtype Patient rh Status Prepregnancy Weight lbs Domestic Partner Domestic Partner Phone Father Name Senior Care Provider Status 11/29/19 23 1 CLOSED Fetus Data First Name Last Name Admitted to NICU Weight (g) Sex Living Outcome Pediatric Complications Fetus ID Race Codes Race Delivery Type 3770.48 35 M true Full Term [email or web address] [id number] Vaginal Delivery Problems Problem Notes pre-admit schd 04/18 @ 12:30P CR 0.38 - 24hr urine 04/06 Problem Name Start Date End Date Resolution Snomed Code Not e Urinary tract infection in 512432017 [place] macrobid 11/04 1 Uterine size for dates discrepancy 443042118 US 36w Large for gestation age fetus 187550428 94% at 36w Mac Calculation Initial Mac Date Initial Exam Date Initial Exam Provider Initial Ultrasound Date Last Menstrual Period Date Ultra Sound Weeks Gestation 05/13/2023 11/28/2022 11/14/2022 14 Eighteen To Twenty Week Mac Update Ultra Sound Date Fundal Height At Umbil Quickening Date Ultra Sound Latest Weeks Gestation Final Mac Confirmed By Final Mac Confirmed Date Final Mac Date Ultra Sound Latest Days Gestation 0 [email or web address] 11/28/2022 05/13/20 23 0 Pre-jacque Flowsheet Flowsheet Date 11/28/2022 Silva Score Blood Edema Fundus Height Fundus Units Glucose Ketones Leukocytes Nitrite Labor Signs Protein Cervic Dilation Cervic Effacement Cervic Station Type Weight in lbs Pre/Post Dialysis Refused Weight 208.860365100823 BP Diastolic BP Location Tested BP Systolic BP Type 77 R arm 124 sitting Fetus Heart Rate Present Fetus Movement Comments this patient is a 17-year-ol d female presents for initial care. She has no problems. She has an unremarkable medical, surgical, obstetric history. She is vaccinated and was given other vaccine recommendations. She will begin routine care. We discussed routine care in detail. Flowsheet Date 12/26/2022 Silva Score Blood Edema Fundus Height Fundus Units Glucose Ketones Leukocytes Nitrite Labor Signs Protein Cervic Dilation Cervic Effacement Cervic Station Type Weight in lbs Pre/Post Dialysis Refused BP Diastolic BP Location Tested BP Systolic BP Type Fetus Heart Rate Present Fetus Movement Comments Flowsheet Date 12/26/2022 Silva Score Blood Edema Fundus Height Fundus Units Glucose Ketones Leukocytes Nitrite Labor Signs Protein Cervic Dilation Cervic Effacement Cervic Station neg none none trace Type Weight in lbs Pre/Post Dialysis Refused Weight 212.56986414362 BP Diastolic BP Location Tested BP Systolic BP Type 68 120 Fetus Heart Rate Present Fetus Movement A Yes Comments Doing well. Baseline anatomy today. Having a boy Irving . Incomplete views and echogenic bowel. Plan to repeat in 4 weeks unless different recommendation from MD. Flowsheet Date 01/23/2023 Silva Score Blood Edema Fundus Height Fundus Units Glucose Ketones Leukocytes Nitrite Labor Signs Protein Cervic Dilation Cervic Effacement Cervic Station Type Weight in lbs Pre/Post Dialysis Refused BP Diastolic BP Location Tested BP Systolic BP Type Fetus Heart Rate Present Fetus Movement Comments Flowsheet Date 01/23/2023 Silva Score Blood Edema Fundus Height Fundus Units Glucose Ketones Leukocytes Nitrite Labor Signs Protein Cervic Dilation Cervic Effacement Cervic Station neg none 26 none trace Type Weight in lbs Pre/Post Dialysis Refused Weight 218.885903700510 BP Diastolic BP Location Tested BP Systolic BP Type 74 121 Fetus Heart Rate Present A 150 Fetus Movement A Yes Comments Doing well, n concerns GCT n ext visit. Discuss Tdap next visit. US today anatomy now complete and wnl. No echogenic bowel seen today. Flowsheet Date 02/20/2023 Silva Score Blood Edema Fundus Height Fundus Units Glucose Ketones Leukocytes Nitrite Labor Signs Protein Cervic Dilation Cervic Effacement Cervic Station neg trace 31 none trace Type Weight in lbs Pre/Post Dialysis Refused Weight 224.530532896810 BP Diastolic BP Location Tested BP Systolic BP Type 81 133 Fetus Heart Rate Present A 130 Fetus Movement A Yes Comments Doing well. GERD not control led with tums, will try pepcid. GCT today. Discussed tdap, will do. Flowsheet Date 03/06/2023 Silva Score Blood Edema Fundus Height Fundus Units Glucose Ketones Leukocytes Nitrite Labor Signs Protein Cervic Dilation Cervic Effacement Cervic Station neg trace 35 none trace Type Weight in lbs Pre/Post Dialysis Refused Weight 223.528376177886 BP Diastolic BP Location Tested BP Systolic BP Type 75 127 Fetus Heart Rate Present A 125 Fetus Movement A Yes Comments Doing fine. GCT wnl, taking iron. Tdap done for both of them. GERD not too bad. US 36w for S>D. Precautions discussed. Flowsheet Date 03/20/2023 Silva Score Blood Edema Fundus Height Fundus Units Glucose Ketones Leukocytes Nitrite Labor Signs Protein Cervic Dilation Cervic Effacement Cervic Station neg trace 36 none trace Type Weight in lbs Pre/Post Dialysis Refused Weight 227.965963439741 BP Diastolic BP Location Tested BP Systolic BP Type 72 110 Fetus Heart Rate Present A 130 Fetus Movement A Yes Comments Doing well, no concerns. Add US for S>D. Flowsheet Date 04/04/2023 Silva Score Blood Edema Fundus Height Fundus Units Glucose Ketones Leukocytes Nitrite Labor Signs Protein Cervic Dilation Cervic Effacement Cervic Station neg trace 37 trace 2+ Type Weight in lbs Pre/Post Dialysis Refused Weight 229.714984863796 BP Diastolic BP Location Tested BP Systolic BP Type 83 133 Fetus Heart Rate Present A 130 Fetus Movement A Yes Comments Doing well, feeling fine. GB S and growth US next visit. BP just mildly elevated, but with 2+ proteinuria, will do PIH labs and 24 hour urine. Denies any PreE sx. Great FM. Precautions given. Flowsheet Date 04/18/2023 Silva Score Blood Edema Fundus Height Fundus Units Glucose Ketones Leukocytes Nitrite Labor Signs Protein Cervic Dilation Cervic Effacement Cervic Station Type Weight in lbs Pre/Post Dialysis Refused BP Diastolic BP Location Tested BP Systolic BP Type Fetus Heart Rate Present Fetus Movement Comments Flowsheet Date 04/18/2023 Silva Score Blood Edema Fundus Height Fundus Units Glucose Ketones Leukocytes Nitrite Labor Signs Protein Cervic Dilation Cervic Effacement Cervic Station neg none none trace 1cm 40% -3 Type Weight in lbs Pre/Post Dialysis Refused Weight 233.438888210610 BP Diastolic BP Location Tested BP Systolic BP Type 83 130 Fetus Heart Rate Present A 150 Fetus Movement A Yes Comments Doing well. GBS done. . US today 94%. Discussed risks of LGA including need for CS, shoulder dystocia. yeast infection on exam- diflucan x2. FU weekly, precautions given. Flowsheet Date 04/25/2023 Silva Score Blood Edema Fundus Height Fundus Units Glucose Ketones Leukocytes Nitrite Labor Signs Protein Cervic Dilation Cervic Effacement Cervic Station neg none none trace Type Weight in lbs Pre/Post Dialysis Refused Weight 232.40989225508 BP Diastolic BP Location Tested BP Systolic BP Type 85 133 Fetus Heart Rate Present A 130 Fetus Movement A Yes Comments cervix still .. GBS neg . Precautions given. Flowsheet Date 05/02/2023 Silva Score Blood Edema Fundus Height Fundus Units Glucose Ketones Leukocytes Nitrite Labor Signs Protein Cervic Dilation Cervic Effacement Cervic Station trace 39 Type Weight in lbs Pre/Post Dialysis Refused Weight 235.159140298110 BP Diastolic BP Location Tested BP Systolic BP Type 82 122 Fetus Heart Rate Present A 130 Fetus Movement A Yes Comments Doing well, no concerns. Cer vix same. WOuld like IOL between 39-40w. WIll schedule. Menstrual History Last Menstrual Date Menses Monthly On Bcp Conception Prior Menses Frequency Hcg Plus Date Menarche Onset Age Genetic Screening And Infection History Question Response Note Mental Retardation/Autism false Patient's Age Will Be 35 Years Or Older At Estim ated Date of Delivery false Thalassemia (Hong Konger, Slovak, Mediterranean, Or Background): MCV < 80 false Neural Tube Defect (Meningomyelocele, Spina Bifi da, Or Anencephaly) false Congenital Heart Defect false Down Syndrome false Martín-Sachs (eg, Sikh, Cajun, Divehi-Lefors) f alse Larry Disease false Sickle Cell Disease Or Trait () false Hemophilia Or Other Blood Disorders false Muscular Dystrophy false Cystic Fibrosis false [place]'s Chorea false Intellectual Disability/Autism false If Yes, Was Person Tested For Fragile X? false Other Inherited Genetic Or Chromosomal Disorder false Maternal Metabolic Disorder (eg, Type 1 Diabetes , PKU) false Patient Or Baby's Father Had A Child With Defects Not Listed Above false Recurrent Loss, Or A Stillbirth false Medications (including Suppl ements, Vitamins, Herbs, OTC Drugs), Illicit/Recreational Drugs, Alcohol false If Yes, Agent(s) And Strength/Dosage false Any Other Genetic History false Live With Someone With TB Or Exposed To TB false Patient Or Partner Has History Of Genital Herpes false Rash Or Viral Illness Since Last Menstrual Perio d false History Of STD, Gonorrhea, Chlamydia, HPV, Syphi lis false Other Infection History false History of HIV false History of Hepatitis false Prior GBS-infected child false Hemoglobinopathy Or Carrier false Other Structural Defect false Recent Travel History Outside of Country false Delivery Information Delivery Date Delivery Type Labor Anesthesia Weeks Gestation Incision Type Labor Labor Length Hrs Delivered By Post Complications Tubal Sterilization Discharge Date Comments 3 Induce d [facility] 39.3 false Meenu Malone MD *shoulder dystocia; LGA Discharge Information Feeding Method Contraceptive Method Maternal HG B and HCT Levels Ob Episode Information Episode Created Date Number of Fetuses Patient Bloodtype Patient rh Status Prepregnancy Weight lbs Domestic Partner Domestic Partner Phone Father Name Senior Care Provider Status 07/19/20 24 1 O Positive 190 Isaias OPEN Fetus Data First Name Last Name Admitted to NICU Weight (g) Sex Living Outcome Pediatric Complications Fetus ID Race Codes Race Delivery Type [id number] Problems Problem Notes 11/04/2024 [facility] referral faxed because of rvot still not visualized after 3 ultrasounds. Problem Name Start Date End Date Resolution Snomed Code Not e Past history of shoulder dystocia [id number] <20 sec , 8lb 5 oz Mac Calculation Initial Mac Date Initial Exam Date Initial Exam Provider Initial Ultrasound Date Last Menstrual Period Date Ultra Sound Weeks Gestation 01/22/2025 06/25/2024 06/25/2024 9 Eighteen To Twenty Week Mac Update Ultra Sound Date Fundal Height At Umbil Quickening Date Ultra Sound Latest Weeks Gestation Final Mac Confirmed By Final Mac Confirmed Date Final Mac Date Ultra Sound Latest Days Gestation 0 0 Pre-jacque Flowsheet Flowsheet Date 07/19/2024 Silva Score Blood Edema Fundus Height Fundus Units Glucose Ketones Leukocytes Nitrite Labor Signs Protein Cervic Dilation Cervic Effacement Cervic Station neg none none trace Type Weight in lbs Pre/Post Dialysis Refused Weight 190.331427563278 BP Diastolic BP Location Tested BP Systolic BP Type 76 136 Fetus Heart Rate Present Fetus Movement A Yes Comments Patient is having some nause a. hx shoulder dystocia with dr. malone less than 20 sec, will continue to monitor growth with this , begin routine care f/u 4 weeks Flowsheet Date 08/15/2024 Silva Score Blood Edema Fundus Height Fundus Units Glucose Ketones Leukocytes Nitrite Labor Signs Protein Cervic Dilation Cervic Effacement Cervic Station 144 cm Type Weight in lbs Pre/Post Dialysis Refused 233.350621833626 BP Diastolic BP Location Tested BP Systolic BP Type 79 L arm 119 sitting Fetus Heart Rate Present Fetus Movement A No Comments no complaints, no problems, routine care, no contractions, no vaginal bleeding, no loss of fluid, no cramping Flowsheet Date 08/22/2024 Silva Score Blood Edema Fundus Height Fundus Units Glucose Ketones Leukocytes Nitrite Labor Signs Protein Cervic Dilation Cervic Effacement Cervic Station neg none Type Weight in lbs Pre/Post Dialysis Refused Weight 235.305497279192 BP Diastolic BP Location Tested BP Systolic BP Type 77 L arm 122 sitting Fetus Heart Rate Present A 145 Fetus Movement A Yes Comments no complaints, no problems, routine care, no contractions, no vaginal bleeding, no loss of fluid, no cramping Flowsheet Date 09/10/2024 Silva Score Blood Edema Fundus Height Fundus Units Glucose Ketones Leukocytes Nitrite Labor Signs Protein Cervic Dilation Cervic Effacement Cervic Station Type Weight in lbs Pre/Post Dialysis Refused BP Diastolic BP Location Tested BP Systolic BP Type Fetus Heart Rate Present Fetus Movement Comments Flowsheet Date 09/10/2024 Silva Score Blood Edema Fundus Height Fundus Units Glucose Ketones Leukocytes Nitrite Labor Signs Protein Cervic Dilation Cervic Effacement Cervic Station neg none Type Weight in lbs Pre/Post Dialysis Refused 234.023943772090 BP Diastolic BP Location Tested BP Systolic BP Type 64 L arm 111 sitting Fetus Heart Rate Present A Present Fetus Movement A Yes Comments Patient c/o of slight nausea . Good movement. No cramping or bleeding. Anatomy incomplete, needs heart and profile views. Will repeat in 4 weeks. EFW 87%. Hx of shoulder dystocia with 94% baby, discussed risk of recurrence should fetus become LGA. RTC 4 weeks. Flowsheet Date 10/08/2024 Silva Score Blood Edema Fundus Height Fundus Units Glucose Ketones Leukocytes Nitrite Labor Signs Protein Cervic Dilation Cervic Effacement Cervic Station Type Weight in lbs Pre/Post Dialysis Refused BP Diastolic BP Location Tested BP Systolic BP Type Fetus Heart Rate Present Fetus Movement Comments Flowsheet Date 10/08/2024 Silva Score Blood Edema Fundus Height Fundus Units Glucose Ketones Leukocytes Nitrite Labor Signs Protein Cervic Dilation Cervic Effacement Cervic Station neg none Type Weight in lbs Pre/Post Dialysis Refused 238.010652668335 BP Diastolic BP Location Tested BP Systolic BP Type 81 L arm 118 sitting Fetus Heart Rate Present A Present Fetus Movement A Yes Comments Good movement. No cram ping or bleeding. Nausea improving. Anatomy still incomplete, normal profile however RVOT not visualized. Will repeat in 4 weeks. EFW 91%, discussed GCT for next visit as well as recurrence risk for shoulder dystocia with delivery if baby is similar sized. RTC 4 weeks. Flowsheet Date 10/29/2024 Silva Score Blood Edema Fundus Height Fundus Units Glucose Ketones Leukocytes Nitrite Labor Signs Protein Cervic Dilation Cervic Effacement Cervic Station Type Weight in lbs Pre/Post Dialysis Refused BP Diastolic BP Location Tested BP Systolic BP Type Fetus Heart Rate Present Fetus Movement Comments Flowsheet Date 10/29/2024 Silva Score Blood Edema Fundus Height Fundus Units Glucose Ketones Leukocytes Nitrite Labor Signs Protein Cervic Dilation Cervic Effacement Cervic Station neg none Type Weight in lbs Pre/Post Dialysis Refused Weight 241.330241967439 BP Diastolic BP Location Tested BP Systolic BP Type 76 L arm 126 sitting Fetus Heart Rate Present A Present Fetus Movement A Yes Comments Good movement. No cram ping or bleeding. GCT and labs today. EFW 88%, RVOT still not visualized. Will send to [facility] for evaluation. Otherwise normal anatomy visualized. Discussed tdap vaccine. RTC 2 weeks. Menstrual History Last Menstrual Date Menses Monthly On Bcp Conception Prior Menses Frequency Hcg Plus Date Menarche Onset Age Delivery Information Delivery Date Delivery Type Labor Anesthesia Weeks Gestation Incision Type Labor Labor Length Hrs Delivered By Post Complications Tubal Sterilization Discharge Date Comments Discharge Information Feeding Method Contraceptive Method Maternal HG B and HCT Levels
--- OUTSIDE RECORDS SUMMARY | 2024-11-10 16:20 | XMS_ITS | Patient Health Summary ---
Author Organization [facility] Address [address] [place] [address] Care Team Providers Care Insurance Executive Name Role Phone Unavailable Primary Care Provider Unavailabl e Note from [facility],non-owned Affiliates and Associated Physician Practices is amultiple site organization consisting of ambulatory clinics and hospital sitesin [place], [place] and [place]. This disclosure is being madepursuant to the Care Everywhere program and may not contain all information available regarding this patient. Last updated 18.[facility] Social History Tobacco Use Types Packs/Day Years Used Date Smoking Tobacco: Never Assessed Sex and Gender Information Value Date Recorded Sex Assigned at Not on file Gender Identity Not on file Sexual Orientation Not on file
--- OUTSIDE RECORDS SUMMARY | 2024-11-10 16:20 | XMS_ITS | Referral Summary ---
Author Organization [facility] Address [address] [place] [address] Care Team Providers Care Drywall Foreman Name Role Phone Unavailable Primary Care Provider Unavailabl e Source Comments [facility],non-owned Affiliates and Associated Physician Practices is amultiple site organization consisting of ambulatory clinics and hospital sitesin [place], [place], [place] and [place]. This disclosure is being madepursuant to the Care Everywhere program and may not contain all information available regarding this patient. Last updated 18.[facility] Social History Tobacco Use Types Packs/Day Years Used Date Smoking Tobacco: Never Assessed Sex and Gender Information Value Date Recorded Sex Assigned at Not on file Gender Identity Not on file Sexual Orientation Not on file Plan of Treatment Upcoming Encounters Date Type Department Care Team (Late st Contact Info) Description 11/20/2024 10:30 AM CDT Appointment [facility] Maternal & Care [address] [place] [phone] 11/20/2024 11:15 AM CDT Appointment [facility] Maternal & Care [address] [place] [phone]
--- OUTSIDE RECORDS SUMMARY | 2024-11-10 16:20 | XMS_ITS | Clinical Summary ---
Author Organization [facility] Address [address] [place] [address] Care Team Providers Care Mender Hand Name Role Phone Unavailable Primary Care Provider Unavailabl e Source Comments [facility],non-owned Affiliates and Associated Physician Practices is amultiple site organization consisting of ambulatory clinics and hospital sitesin [place], [place], [place] and [place]. This disclosure is being madepursuant to the Care Everywhere program and may not contain all information available regarding this patient. Last updated 18.[facility] Social History Tobacco Use Types Packs/Day Years Used Date Smoking Tobacco: Never Assessed Sex and Gender Information Value Date Recorded Sex Assigned at Not on file Gender Identity Not on file Sexual Orientation Not on file Plan of Treatment Upcoming Encounters Date Type Department Care Team (Late st Contact Info) Description 11/20/2024 10:30 AM CDT Appointment [facility] Maternal & Care [address] [place] [phone] 11/20/2024 11:15 AM CDT Appointment [facility] Maternal & Care [address] [place] [phone] Health Maintenance Due Date Last Done Comments PAP SMEAR 2003 HIV SCREENING 2018 HPV VACCINE (1 - 3-dose series) 2018 CHLAMYDIA/GONORRHEA SCREENING 2019 MENINGOCOCCAL (Group B) VACC INE (1 of 2 - Standard) 2019 HEPATITIS C SCREENING 07/17/2021 DTAP/TDAP/TD VACCINES (1 - Tdap) 2022 HEPATITIS B VACCINE (1 of 3 - 19+ 3-dose series) 2022 COVID-19 VACCINE ( - 2023-2 5 season) 2024 INFLUENZA VACCINE (#1) 2024 DEPRESSION SCREENING 09/04/2024 ZOSTER VACCINE (1 of 2) 2053 HIB VACCINE Aged Out No longer eligi ble based on patient's age to complete this topic MENINGOCOCCAL VACCINE Aged Out No francis tiburcio eligible based on patient's age to complete this topic PNEUMOCOCCAL VACCINE Aged Out No long er eligible based on patient's age to complete this topic
[2024-11-10 16:39] VITALS: BP 104/64; PULSE 99
[2024-11-10 16:49] LABS: Add Urine Microscopic? YES; Appearance Urine Turbid (Clear); Bacteria Urine 4+ /hpf; Bilirubin Urine Negative (Negative); Blood Urine 1+ (Negative); Color Urine Yellow (Yellow); Glucose Urine UA Negative (Negative); Ketones Urine Trace mg/dL (Negative); Leukocyte Esterase Ur 3+ LEU/UL (Negative); Nitrate Urine Positive (Negative); Non Pathogenic Casts 0-2; Protein Urine 2+ mg/dL (Negative); RBC Urine 0-2 /hpf (0-2); Specific Grav Ur 1.018 (1.001-1.035); Squamous Epithelial Cell Urine Occasional /hpf (Few); Urobilinogen Urine 0.2 mg/dL (<2.0); WBC Urine >100 /hpf (0-3); pH Urine 6.5 (5.0-9.0)
--- NOTE | 2024-11-10 16:50 | OBADM ---
This patient, Olga Mark, admitted to the OB room OB Post 116 for observation. Patient/family oriented to hospital policies and general routines including ID bracelet, bed and alarms, visiting hours, pain management, procedures, bathroom and other care routines, personal items, smoking policy, room service/diet, and visiting hours. Patient/Family are encouraged to report perceived risks to care and to ask questions if they do not understand what they are told or what they should do.
[2024-11-10 17:00] VITALS: BP 109/63; PULSE 87
== END 2024-11-10 17:20 | disposition home or self-care (01) ==
PROVIDERS: Admitting Provider Obstetrics & Gynecology; PCP Nurse Practitioner Family; Visit Provider Obstetrics & Gynecology
DX: O26.893 Other specified pregnancy related conditions, third trimester (principal); R10.2 Pelvic and perineal pain; Z3A.29 29 weeks gestation of pregnancy
CPT/HCPCS: 81001; 87086; 87186; G0378; G0379

== ENCOUNTER 2025-01-15 05:53 | Inpatient (IN) | payer BC, SELFPAY ==
[2025-01-15] VITALS (162 sets, daily range): BP systolic 91–139; BP diastolic 32–93; PULSE 55–200; RESP 18; TEMP 36–36.9; O2SAT 78–100; BMI 39.4
--- NOTE | 2025-01-15 05:53 | LDADM ---
This patient, Olga Mark, was admitted to Labor/Delivery/Recovery 103 on 01/15/25 at 05:53. Plans for labor, pain management and were discussed with patient. Patient/family oriented to hospital policies and general routines including ID bracelet, bed and alarms, visiting hours, pain management, procedures, bathroom and other care routines, personal items, smoking policy, room service/diet and guest tray routines, infant security routines, and visiting hours. Patient/Family are encouraged to report perceived risks to care and to ask questions if they do not understand what they are told or what they should do. See OBIX for further documentation.
--- OUTSIDE RECORDS SUMMARY | 2025-01-15 05:59 | XMS_ITS | Data Portability ---
Author Organization [facility] [place] Address [address] [place] [address] [place] [address] Care Team Providers Care Api Developer Name Role Phone CARLENE COOPER Primary Care Provider Assessment Encounter Date Assessment Date Assessment LastModified by Organization Details LastModified Time 01/09/2025 01/09/2025 Patient is _38__weeks . Discussed plan. Not available 01/09/2025 12:01:45 Plan of Treatment Reminders Order Date Submit Date Provider Last Modified By Organization Details Last Modified Time Details Appointments INDUCTI ON 2024 06:00A M Chelsie Hebert CNM Not available Not available Not available U/S OB BPP 2024 02:00P M ULTRASOUND Not available Not available Not available NST 2024 02:30P M NST SCHEDULE Not available Not available Not available OB ROUTINE 2024 02:30P M Chelsie Hebert CNM Not available Not available Not available Lab None recorde d. Referral None recorde d. Procedures None recorde d. Surgeries None recorde d. Imaging non-str ess test 2024 025 [email or web address] [address], [address], [place], [address], 01/10/2025 00:48:33 US, obstetr ic, biophys ical profile + non-str ess test 2024 025 [email or web address] [place], [address], [place], [address], 01/09/2025 22:49:41 non-str ess test 2024 025 [email or web address] [address], [address], [place], [address], 01/07/2025 08:39:40 US, obstetr ic, biophys ical profile + non-str ess test 2024 025 [email or web address] [address], [address], [place], [address], 01/02/2025 21:40:50 Medication Orders None recorde d. Patient TargetsNo targets recorded. Patient InstructionsNo instructions recorded. Reason for Referral None Reported. Results Created Date Observation Date Name Description Value Unit Range Abnormal Flag Note LastModifiedBy Organization Detail LastModifiedTime 12/31/1912/30/2024 CULTU RE: GROUP B STREP SCREE N, REFLE X SUSCE PTIBI LITY result report SEE RESULT S BELOW Test: Cultu re: Group B Strep , Refle x Susce ptibi lity ([facility] ) Speci men Sourc e: Vagin a/Rec viktoriya Speci men Type: Vagin al/Re ctal Speci men Date: 2024 1643 Resul t Date: 1405 Resul t Statu s: Final resul t Abnor mal: No Resul ting Lab: [facility] [address] [facility] [address] Tel: CULTU RE ----- ----- ----- --- No Group B strep isola juan at 2 days (joseph ctive broth enhan cemen t) Not Available [facility] (Lab) [address] [facility], [place], [address], 01/02/2025 15:09:43 12/31/19 25 12/30/2024 US, obste tric, follo w-up No observ ation record ed. [email or web address] [address], [place], [address], 12/31/2024 15:42:32 12/31/19 25 12/30/2024 US, obste tric, follo w-up No observ ation record ed. [email or web address] [place] [address], [place], [address], 12/30/2024 17:56:01 01/03/20 25 01/02/2025 US, obste tric, bioph ysica l profi le + non-s tress test No observ ation record ed. [email or web address] [address], [place], [address], 01/04/2025 23:35:58 01/03/20 25 01/02/2025 US, obste tric, bioph ysica l profi le + non-s tress test No observ ation record ed. [email or web address] [place] [address], [place], [address], 01/02/2025 16:08:31 01/07/20 25 01/06/2025 non-s tress test No observ ation record ed. [email or web address] [place] [address], [place], [address], 01/06/2025 10:06:00 01/10/20 25 01/09/2025 US, obste tric, bioph ysica l profi le + non-s tress test No observ ation record ed. [email or web address] [place] [address], [place], [address], 01/09/2025 11:21:26 01/10/20 25 01/09/2025 US, obste tric, bioph ysica l profi le + non-s tress test No observ ation record ed. [email or web address] [address], [place], [address], 01/12/2025 22:09:56 01/10/20 25 01/09/2025 non-s tress test No observ ation record ed. [email or web address] [place] [address], [place], [address], 01/09/2025 13:37:40 01/10/20 25 01/09/2025 non-s tress test No observ ation record ed. [email or web address] [place] [address], [place], [address], 01/09/2025 13:40:02 Result Notes None recorded. Problems Name Problem SNOMED Code Status Onset Date Resolution Date Notes Provider Name and Address Organization Details Recorded Time Pregnanc y 70204576 Completed 202205/15/2023 Maryann marcelino, [facility] 4 14:46:47 Urinary tract infectio n in pregnanc y 995616669 Completed [place] macrobid 12/02 Martell [facility] 3 12:28:05 Uterine size for dates discrepa ncy 353998842 Completed 36w Martell [facility] 3 12:28:05 Large for gestatio n age fetus 666038383 Completed 94% at 36w Martell [facility] 3 12:28:05 Pregnanc y 52136125 Active 2023 Maryann marcelino [facility] 4 14:46:47 Past pregnanc y history of shoulder dystocia 097851400 Active <20 sec , 8lb 5 oz Chelsie Hebert CNM [address], [place], [address], [facility] 4 14:57:13 Body mass index 30+ - obesity 437867350 Active [email or web address] Maryann De Leon null, [facility] 5 13:13:49 Body mass index 30+ - obesity 117050033 Active [email or web address] De Leon null, [facility] 5 13:13:49 Problem Notes None recorded. Procedures Surgical History None recorded. Imaging Results Imaging Date Name Status LastModified by Organiz ation Details LastModified Time 12/30/2024 US, obstetric, follow-up completed [email or web address] [address], [place], [address], 12/31/2024 15:42:32 12/30/2024 US, obstetric, follow-up completed [email or web address] [address], [place], [address], 12/30/2024 17:56:01 01/02/2025 US, obstetric, biophysical profile + non-stress test completed [email or web address] [address], [place], [address], 01/04/2025 23:35:58 01/02/2025 US, obstetric, biophysical profile + non-stress test completed [email or web address] [place] [address], [place], [address], 01/02/2025 16:08:31 01/06/2025 non-stress test active [address], [place], [address], 01/06/2025 10:06:00 01/09/2025 US, obstetric, biophysical profile + non-stress test completed [email or web address] [place] [address], [place], [address], 01/09/2025 11:21:26 01/09/2025 US, obstetric, biophysical profile + non-stress test completed [email or web address] [address], [place], [address], 01/12/2025 22:09:56 01/09/2025 non-stress test completed [email or web address], [place], [address], 01/09/2025 13:37:40 01/09/2025 non-stress test completed [email or web address] [place] [address], [place], [address], 01/09/2025 13:40:02 Procedure Notes None recorded. Medical Equipment None Reported. Allergies No known drug allergies Medications Name Sig Start Date Stop Date Status Note LastModified by Organization Details LastModified Time fluconazole 150 mg tablet TAKE 1 TABLET BY MOUTH EVERY 72 HOURS FOR 6 DAYS 05/30 completed Not Available Not Available Not Available amoxicillin 875 mg-potassium clavulanate 125 mg tablet 08/15 completed Not Available Not Available Not Available 1.5/30 (28) 1.5 mg-30 mcg (21)/75 mg (7) tablet TAKE 1 TABLET BY MOUTH EVERY DAY 06/03 completed Not Available Not Available Not Available nitrofurantoi n monohydrate/m acrocrystals 100 mg capsule 01/09 completed Not Available Not Available Not Available active Not Available Not Avai lable Not Available Vitals Date Recorded Body height Body mass index (BMI) Body weight Systolic blood pressure Diastolic blood pressure Provider Name and Address Organization Details Last Updated DateTime 01/02/2025 172.09 cm 38.6 kg/m2 263323.2 8 g 122 mm[Hg] 84 mm[Hg] Mary Salazar [place] - [facility] 10:04:26 Date Recorded Body weight Body mass index (BMI) Body height Body height Body mass index (BMI) Body weight Systolic blood pressure Diastolic blood pressure Systolic blood pressure Diastolic blood pressure Provider Name and Address Organization Details Last Updated DateTime 267549. 40236 g 38.6 kg/m2 172.09 cm 172.09 cm 38.6 kg/m2 863797. 28 g 122 mm[Hg] 80 mm[Hg] 122 mm[Hg] 80 mm[Hg] Maryann De Leon [facility] 13:36:05 Social History Question Answer Notes LastModified by Organizat ion Details LastModified Time Tobacco Smoking Status Never Smoker Sakshi Blanco ryland, [facility] 05/30/2023 12:25:10 If You Are , What Was Your Level Of Alcohol Consumption Prior To ? Occasional [email or web address] Information not available 05/30/2023 How Many Years Have You Consumed Alcohol? 2 Information not available 11/28/2022 Are You Blind Or Do You Have Difficulty Seeing? No [email or web address] Information n ot available 11/14/2022 What Is Your Level Of Caffeine Consumption? Occasional Information not available 11/28/2022 How Much Tobacco Do You Chew? None [email or web address] Information not available 11/14/2022 In The 14 Days Before Symptom Onset, Have You Had Close Contact With A Laboratory-confirm ed COVID-19 While That Case Was Ill? No [email or web address] Information n ot available 11/14/2022 In The 14 Days Before Symptom Onset, Have You Had Close Contact With A Person Who Is Under Investigation For COVID-19 While That Person Was Ill? No [email or web address] Information not available 11/14/2022 Have You Been To An Area Known To Be High Risk For COVID-19? No Information not available 11/28/2022 Are You Deaf Or Do You Have Serious Difficulty Hearing? No Information not available 11/14/2022 What Type Of Diet Are You Following? REGULAR [email or web address] Information n ot available 11/14/2022 What Is The Highest Grade Or Level Of School You Have Completed Or The Highest Degree You Have Received? GR96399-4 [email or web address] Information not available 11/14/2022 Are There Any Guns Present In Your Home? No Information not available 11/14/2022 Do You Use Protection During Sex? Usually [email or web address] Information not available 11/14/2022 Do You Use Your Seat Belt Or Car Seat Routinely? Yes [email or web address] Information not available 11/14/2022 Are You Sexually Active? Yes [email or web address] Information not available 10/29/2024 Do You Have Smoke And Carbon Monoxide Detectors In Your Home? Yes [email or web address] Information not available 11/14/2022 How Much Tobacco Do You Smoke? No Information not available 11/14/2022 Do You Use Sunscreen Routinely? Yes Information not available 11/28/2022 Has Tobacco Cessation Counseling Been Provided? No [email or web address] Information not available 05/30/2023 Have You Used IV Drugs? No [email or web address] Information not available 11/14/2022 Do You Have Difficulty Walking Or Climbing Stairs? No [email or web address] Information not available 05/30/2023 Sex: Unknown Functional Status Question Answer Note LastModified by Organizat ion Details LastModified Time Do you use any illicit or recreational drugs? No [email or web address] Information not available 11/14/2022 Do you or have you ever used any other forms of tobacco or nicotine? Yes [email or web address] Information not available 05/30/2023 What is your level of alcohol consumption? None [email or web address] Information not available 11/14/2022 Are you currently employed? Yes [email or web address] Information not available 10/29/2024 Are you able to walk? YESWOREST [email or web address] Information not available 11/14/2022 Are you able to care for yourself? Yes [email or web address] Information not available 05/30/2023 What is your occupation? [employer] [email or web address] Information not available 04/18/2023 Do you have difficulty dressing or bathing? No [email or web address] Information not available 05/30/2023 Do you or have you ever used e-cigarettes or vape? Former user of electronic cigarettes Information not available 05/30/2023 What is your exercise level? Moderate Information not available 11/14/2022 Mental Status Question Answer Note LastModified by Organization D etails LastModified Time Do you feel stressed (tense, restless, nervous, or anxious, or unable to sleep at night)? [id number] [email or web address] Information not available 11/14/2022 Family History Relationship Description Onset Age of this Age Resolved Age Notes LastModified by Organization Details LastModified Time Paternal Grandmother Diabetes mellitus [email or web address] Not available 2024 14:40:08 Medical History Condition [...] SNOMED-CT Code Diagnosis ICD10 Code Diagnosis Note [id number] Jade Guerra CNM [place] [address] [address] 11/14/2022 10:25:52 11/14/2022 12:06:06 Amenorrhea 83001679 N91.2 Venereal d isease screening 180868180 Z11.3 screening 2437 99927 Z36.89 Risk factors addressed: Tobacco Cessation, Safe [...] routine labs. Handouts given and discussed with patient.Ch ildbirth classes recommende d.New OB sheet given.If previous , counseling . New ob in 2 weeks.Pt verbalizes that she understand s the importance of above instructio ns.All questions were answered.P atient reminded to have annual well woman examinatio n and address [facility] . Genetic in vestigation procedure 50791624 Z31.430 Mass of axilla 363608199 R22.2 3cm enlarged axillary lump x 2 weeks. Ultrasound ordered. Warm compress 2-3x per day. Pt will call us 2 business days after imaging to ensure we have received the results. [id number] Vikas Louis MD [place] [address] [address] 11/14/2022 10:26:58 11/14/2022 11:32:49 with uncertain dates 825583888 Z34.90 [id number] Vikas Louis MD [place] [address] [address] 11/28/2022 11:01:01 11/28/2022 12:43:26 Routine care 527547083 Z34.02 [id number] Vikas Louis MD [place] [address],[facility] [place] [address] 12/26/2022 09:20:32 12/26/2022 10:49:39 screening 584323343 Z36.89 [id number] [facility] [address] [address] 12/26/2022 09:20:56 12/26/2022 11:01:26 Routine care 641509226 Z34.92 [id number] Meenu MD Maximo Palomares [address] [address] 01/23/2023 14:45:39 01/23/2023 16:05:56 screening 768836829 Z36.2 [id number] MD Maximo Wagner [address],[place] [address] 01/23/2023 14:46:05 01/24/2023 14:48:23 Routine care 262909581 Z34.02 [id number] MD Maximo Wagner [address] [address] 02/20/2023 11:19:54 02/21/2023 12:10:55 Routine care 796155550 Z34.02 [id number] MD Maximo Wagner [address] [address] 03/06/2023 11:07:07 03/06/2023 14:53:57 Routine care 773724984 Z34.02 Uterine si ze for dates discrepancy 633140831 O26.849 [id number] Meenu Palomares MD [place] [address] [address] 03/20/2023 10:49:48 03/23/2023 12:50:07 Routine care 999407037 Z34.02 [id number] MD Maximo Wagner [address],[place] [address] 04/04/2023 12:30:00 04/04/2023 13:37:58 Routine care 359840082 Z34.02 Gestationa l proteinuria 03173729 O12.13 [id number] MD Maximo Wagner [address],[place] [address] 04/18/2023 11:19:25 04/18/2023 12:19:36 Uterine size for dates discrepancy 821757284 O26.843 Z3A.36 [id number] MD Maximo Wagner [address] [address] 04/18/2023 11:33:10 04/18/2023 12:25:23 Candidiasis of vagina 63575349 B37.31 Routine an tenatal care 554602565 Z34.02 Large for gestation age fetus 074249305 O36.63X1 [id number] Meenu Palomares MD [place] [address] [address] 04/25/2023 17:02:13 04/25/2023 17:33:12 Routine care 741031973 Z34.02 Large for gestation age fetus 090157083 O36.63X1 [id number] Meenu Palomares MD [place] [address],[place] [address] 05/02/2023 11:57:13 05/03/2023 10:36:28 Large for gestation age fetus 651033431 O36.63X1 Routine an tenatal care 946003082 Z34.02 [id number] Meenu Palomares MD [place] [address] [address] 05/30/2023 12:24:49 05/30/2023 13:43:46 care 214077712 Z39.2 Initial pr escription of oral contraception 111258707 Z30.011 [id number] EDWARD Kennedy [place] [address],[place] [address] 01/16/2024 13:41:18 01/16/2024 14:35:58 Gynecologic examination 89842488 Z01.419 WWEpap at 19declined STI screenenco uraged [...] paper copy of today's plan if desired. [facility] ion care management 231650044 Z30.9 desires to continue current OCPrefills sent x 12 months, r/b/a revieweden couraged to monitor BP, notify the office if elevated - pt verbalized understand ing [id number] Vikas Louis MD [place] [address],[place] [address] 06/03/2024 13:39:31 06/03/2024 14:42:35 Uterine size for dates discrepancy 512187179 O26.841 Z3A.01 [id number] Vikas Louis MD [place] [address] [address] 06/03/2024 13:39:53 06/03/2024 15:19:47 Amenorrhea 31035353 N91.2 this patient is a 18 year-old [...] week ultrasound . To begin routine care. [id number] Vikas Louis MD [place] [address],[place] [address] 06/25/2024 15:42:44 06/25/2024 16:28:55 [id number] Chelsie Hebert CNM [place] [address] [address] 06/26/2024 17:49:21 06/27/2024 10:29:45 Amenorrhea 66667683 N91.2 Venereal d isease screening 556196188 Z11.3 [id number] Vikas Louis MD [place] [address] [address] 07/08/2024 12:39:48 07/08/2024 15:02:58 screening 106849022 Z36.82 Z3A.11 [id number] Chelsie Hebert [facility] [address] [address] 07/19/2024 13:40:41 07/19/2024 15:12:45 Gestation period, 13 weeks 73807121 Z3A.13 continue vitamin Routine an tenatal care 161082460 Z34.90 [id number] Vikas Louis MD [place] [address],[place] [address] 08/15/2024 11:35:59 08/15/2024 12:56:34 Routine care 386978432 Z34.02 [id number] Vikas Louis MD [place] [address],[place] [address] 08/22/2024 14:32:52 08/22/2024 15:07:59 Routine care 063943979 Z34.02 [id number] Vikas Louis MD [place] [address] [address] 09/10/2024 14:45:08 09/10/2024 16:01:22 screening for malformation 507200789 Z36.3 Z3A.20 [id number] MARCELLO VIGIL MD [place] [address] [address] 09/10/2024 14:45:24 09/11/2024 09:12:54 Shoulder girdle dystocia 96048287 O66.0 - hx of; 20sec with 94% fetus- unsure if desires PCS vs due to recurrence risk Gestation period, 20 weeks 07355363 Z3A.20 [id number] Vikas Louis MD [place] [address],[place] [address] 10/08/2024 16:45:40 10/08/2024 17:44:52 screening 424308075 Z36.2 Z3A.24 [id number] MARCELLO VIGIL MD [place] [address] [address] 10/08/2024 16:47:09 10/08/2024 18:16:31 Shoulder girdle dystocia 14003422 O66.0 - hx of; 20sec with 94% fetus- unsure if desires PCS vs due to recurrence risk Excessive growth affecting management of mother 38685828 O36.60X0 - EFW 91% at 24 weeks, repeat in 4 weeks Gestation period, 24 weeks 895710233 Z3A.24 [id number] Vikas Louis MD [place] [address],[place] [address] 10/29/2024 13:46:56 10/29/2024 14:43:18 screening 148828626 Z36.2 Z3A.27 [id number] MARCELLO VIGIL MD [place] [address] [address] 10/29/2024 13:47:20 10/30/2024 06:47:38 screening 019055921 Z36.89 Routine an tenatal care 283064118 Z34.82 [id number] MARCELLO VIGIL MD [place] [address] [address] 11/13/2024 14:12:36 11/13/2024 14:54:41 Routine care 299160480 Z34.82 [id number] [facility] [address] [address] 11/26/2024 12:12:15 11/26/2024 12:45:46 Gestation period, 31 weeks 97572510 Z3A.31 [id number] [facility] [address] [address] 12/10/2024 12:43:54 12/10/2024 13:34:17 Gestation period, 33 weeks 93743519 Z3A.33 [id number] Vikas Louis MD [place] [address] [address] 12/30/2024 14:50:33 12/30/2024 15:38:04 Obesity 856571908 O99.210 Z3A.36 [id number]|2025-01-16 08:09:21|2025-01-16 08:09:21|PM.OBDSVD||||"DS: Admitting Diagnosis Discharge Date Admitting Diagnosis IOL DS: Discharge Diagnosis Discharge Diagnosis (1) Vaginal delivery: Code(s): O80 - Encounter for full-term uncomplicated delivery Status: Acute OB - DS: Summary OB Procedures : None OB Procedures Intrapartum: Spontaneous Vag Delivery OB Procedures: : None Peripartum Data Laceration Description: None Episiotomy description: None Time Spent with Patient Time attestation: Total time spent providing and/or coordinating discharge services: DS: Data Data Completed and Pending Labs on day of discharge: Labs from last 24 hours 01/16/25 03:35 Hgb 8.8 L Hct 30.0 L Discharge Plan Discharge Attending physician on discharge: Vikas Louis Discharging Clinician: Chelsie Hebert Patient Disposition: Home Activity: pelvic rest Diet: regular Patient Instructions: Antibiotic Form Patient Language: Paraguayan Stand Alone Forms: General Discharge Information Follow-up/Referrals: Chelsie Hebert, CNM [Certified Nurse Data Entry] - 4 Weeks Discharge Medications: Continued PNV no.70-uuyg-slmub acid 30-975 mg-mcg Tablet 1 tablet PO DAILY Date of admission: 01/15/25 05:53 Primary Care Provider: Carlene Cooper Admitting Provider: Vikas Louis Attending physician on admission: Vikas Louis Condition: Stable"
--- OUTSIDE RECORDS SUMMARY | 2025-01-15 05:59 | XMS_ITS | Clinical Summary ---
Author Organization [facility] Address [address] [place] [address] Care Team Providers Care Microbiology Lab Technician Name Role Phone Unavailable Primary Care Provider Unavailabl e Source Comments [facility],non-owned Affiliates and Associated Physician Practices is amultiple site organization consisting of ambulatory clinics and hospital sitesin [place], [place], [place] and [place]. This disclosure is being madepursuant to the Care Everywhere program and may not contain all information available regarding this patient. Last updated 18.[facility] Allergies No known active allergies Medications * Be aware that medications may not be up to date on this document. Alwaysverify current medications with the patient. Vit-Fe Fumarate-FA ( vitamin) 28-0.8 MG tabletIndicatio ns: Take 1 (one) tablet by mouth once daily Reasons: Active Encounters Date Type Department Care Team Description 11/20/2024 10:11 AM CDT - 11/20/2024 11:59 PM CDT Hospital Encounter [facility] [address] [place] [address] Zellaem Dsouza MD Discharge Disposition: Home or Self Care 11/20/2024 10:11 AM CDT - 11/20/2024 11:59 PM CDT Hospital Encounter [facility] [address] [place] [address] Zelalem Dsouza MD Discharge Disposition: Home or Self Care from Last 3 Months Family History Medical History Relation Name Comments Diabetes - Type 2 Maternal Grandmother Relation Name Status Comments Maternal Grandmother Social History Tobacco Use Types Packs/Day Years Used Date Smoking Tobacco: Never Smokeless Tobacco: Never Tobacco Cessation:Counseling Given: Not Answered Alcohol Use Standard Drinks/Week Comments Not Currently 0 (1 standard drink = 0.6 oz pur e alcohol) Estimated Date of Delivery Comme nts Yes 01/22/2025 Based on Ultraso und Sex and Gender Information Value Date Recorded Sex Assigned at Not on file Legal Sex Female 10:39 AM CDT Gender Identity Not on file Sexual Orientation Not on file Last Filed Vital Signs Vital Sign Reading Time Taken Comments Blood Pressure 122/74 11/20/2024 10:58 AM CDT Pulse 89 11/20/2024 10:58 AM CDT Temperature - - Respiratory Rate - - Oxygen Saturation - - Inhaled Oxygen Concentration - - Weight 109.8 kg (242 lb) 11/20/2024 10:58 AM CDT Height 170.2 cm (5' 7 ) 11/20/2024 10:58 AM CDT Body Mass Index 37.9 11/20/2024 10:58 AM CDT Plan of Treatment Health Maintenance Due Date Last Done Comments PAP SMEAR 2003 HPV VACCINE (1 - 3-dose series) 2018 CHLAMYDIA/GONORRHEA SCREENING 2019 MENINGOCOCCAL (Group B) VACC INE SHARED DECISION-MAKING (1 of 2 - Standard) 2019 HEPATITIS C SCREENING 07/17/2021 DTAP/TDAP/TD VACCINES (1 - Tdap) 2022 HEPATITIS B VACCINE (1 of 3 - 19+ 3-dose series) 2022 COVID-19 VACCINE (1 - 2023-2 5 season) 2024 DEPRESSION SCREENING 09/04/2024 OB-ONE HOUR GLUCOSE 10/16/2024 OB-TDAP CURRENT 10/23/2024 OB-RHOGAM INJECTION 10/30/2024 OB-GROUP B STREP SCREEN 12/18/2024 INFLUENZA VACCINE (Season Ended) 2025 ZOSTER VACCINE (1 of 2) 2053 HIV SCREENING Completed 10/29/2024 HIB VACCINE Aged Out No longer eligi ble based on patient's age to complete this topic MENINGOCOCCAL GROUPS A/C/Y/W VACCINE Aged Out No longer eligible b ased on patient's age to complete this topic PNEUMOCOCCAL VACCINE Aged Out No long er eligible based on patient's age to complete this topic Respiratory Syncytial Virus (RSV) Vaccine Pt: or over 60 yrs (No Doses Required) Completed Procedures Procedure Name Priority Date/Time Associated Diagnosis Comments SONOGRAM - COMPLETE Routine 11/20/2024 1 0:13 AM CDT Encounter for anatomic survey Obesity affecting in third trimester, unspecified obesity type Encounter for ultrasound to assess growth from Last 3 Months Results * SONOGRAM - COMPLETE (11/20/2024 10:13 AM CDT) Linked Results Indication ======== Suboptimal anatomy on outside scan (RVOT) Class I Obesity, Prior shoulder dystocia History ====== OB History 2. Para 1 [id number] 1. live 2022. Gest. age 39 w + 3 d. Weight 3,771 g. Sex of child: male. Details: Vaginal delivery; Shoulder Dystocia Lab Tests Test Date Result NIPT Low risk, Female Maternal Assessment Physical Exam Height 170 cm, 5 ft 7 in. Weight 110 kg, 242 lb. Initial weight 95 kg, 210 lb. BMI 37.90 kg/m . Initial BMI 32.89 kg/m . Weight gain 15 kg, 32 lb Method ====== Transabdominal ultrasound. View: Sufficient ========= Webber . Number of fetuses: 1 Dating ====== Date Details Gest. age LISA Stated LISA 31 w + 0 d 01/22/2025 Previous U/S 06/03/2024 CRL 7.9 mm 31 w + 0 d 01/22/2025 U/S 11/20/2024 based upon AC, BPD, Femur, HC 33 w + 2 d 01/06/2025 Assigned dating based on ultrasound (CRL), selected on 11/20/2024 31 w + 0 d 01/22/2025 General Evaluation Cardiac activity present. FHR 144 bpm. Presentation: cephalic Placenta: Placental site: anterior Umbilical cord: Cord vessels: 3 vessel cord. Insertion site: normal insertion Amniotic fluid: Amount of AF: normal. MVP 6.1 cm. SAI 13.6 cm. Q1 6.1 cm, Q2 2.9 cm, Q3 3.2 cm, Q4 1.5 cm Biometry BPD 82.3 mm 33w 1d 92% Hadlock HC 303.5 mm 33w 5d 86% Hadlock Cerebellum tr 40.6 mm 82% [place] AC 292.6 mm 33w 2d 95% Hadlock Femur 63.5 mm 32w 6d 83% Hadlock Humerus 55.8 mm 32w 3d 88% Lenny HC / AC 1.04 -/- Hadlock Weight Calculation: EFW 2,133 g 95% Hadlock EFW (lb,oz) 4 lb 11 oz EFW by Hadlock (FOC-CA-FR-FL) accelerated Growth Overview Exam date GA BPD (mm) HC (mm) AC (mm) FL (mm) HL (mm) EFW (g) 11/20/2024 31w 0d 82.3 92% 303.5 86% 292.6 95% 63.5 83% 55.8 88% 2133 95% Anatomy The following structures appear normal: Head / Neck Cranium. Lateral ventricles. Choroid plexus. Midline falx. Cavum septi pellucidi. Cerebellum. Cisterna magna. Face Lips. Profile. Nose. Orbits. Heart / Thorax 4-chamber view. RVOT view. LVOT view. 3-vessel view. 7-hbjtoc-lonpxza view. Situs. Bicaval view. Ductal arch view. Interventricular septum. Great vessels. Right lung. Left lung. Diaphragm. Abdomen Stomach. Kidneys. Bladder. Genitals. Spine Cervical spine. Thoracic spine. Lumbar spine. Sacral spine. Extremities / Skeleton Arms. Legs. The following structures could not be adequately visualized: Heart / Thorax Aortic arch view. Abdomen Cord insertion. Extremities / Skeleton Hands. Feet. sex: female. 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 32.9 Prior complicated by shoulder dystocia * Today's ultrasound (U/S) findings: Living webber intrauterine fetus growth is trending large for gestational age (LGA) Amniotic fluid volume (AFV) is normal range Placenta is anterior & clear of the internal cervical os Comprehensive anatomic survey appears normal The RVOT & 3VV appear normal, unable to obtain aortic arch COUNSELING & RECOMMENDATIONS (PLEASE SEE FULL CONSULT IN EPIC) * In my best medical opinion, I would advise: We discussed the limitations of all methods to estimate weight (+/-20%) In the 36th week: Follow-up U/S for EFW Further consultation about risks/ramifications of shoulder dystocia recurrence Counseling about trial of vaginal delivery versus C/S testing (e.g. NST+BPP or NST+SAI) if later indicated Delivery planning (timing, mode, location): too early to determine at present Follow-up ======== EFW at 36 weeks Coding ====== Procedures 74223: US Preg Uterus Detailed [facility] Anatomical Region Laterality Modality Other 11/20/2024 10:1 3 AM CDT R Marco A Louis MD [facility] ORDERABLES Edited Result - Final from Last 3 Months Insurance [facility] [place] Address: [facility] [id number] [place] [address]
[2025-01-15 06:36] LABS: Basophils Percent Auto 0.2 % (0.2-1.2); Eosinophils Absolute Auto 0.1 K/mm3 (0-0.3); Eosinophils Percent Auto 0.6 % (0-4.4); Hematocrit 34.1 % (37.0-47.0); Hemoglobin 9.9 g/dL (12.0-15.0); Immature Granulocyte Absolute 0.04 K/mm3 (0.00-0.031); Immature Granulocyte Percent A 0.4 % (0-0.5); Lymphocytes Absolute Auto 2.76 K/mm3 (0.9-3.2); Lymphocytes Percent Auto 28.7 % (18.3-44.2); Mean Corpuscular Hemoglobin 22.6 pg (26-34); Mean Corpuscular Volume 77.9 fl (80-100); Mean Platelet Volume 11.5 fl (7.4-10.4); Monocytes Absolute Auto 0.7 K/mm3 (0.1-0.6); Monocytes Percent Auto 6.9 % (2.6-8.5); Neutrophils Absolute Auto 6.1 K/mm3 (1.3-6.7); Neutrophils Percent Auto 63.2 % (45.5-73.1); Platelet Count Result 222 k/mm3 (150-375); Red Blood Count 4.38 M/mm3 (4.2-5.4); Red Cell Distribution Width 14.4 % (11.5-14.5); White Blood Count 9.6 K/mm3 (4.5-10.0)
[2025-01-15 06:55] LABS: Hypochromasia 1+; Platelet Estimate Adequate (Adequate); Schistocytes None Seen
[2025-01-15] MEDS: LACTATED RINGERS 1,000 ML 125 ML IV CONT ×3 (06:55→16:30)
[2025-01-15] MEDS: OXYTOCIN 30 UNITS/NS 500 ML 30 UNITS/500 ML BAG IV CONT (06:57)
--- NOTE | 2025-01-15 07:07 | WPDANESEPP ---
Anes - Eval Pre Procedure Procedure: labor epidural Date/Time: 01/15/25 07:07 Preop Diagnosis: pain during labor Pre Op Diagnosis: IOL Patient Data Age: 19 Gender: F Height: Weight: Last Vital Signs Pulse 95 01/15/25 07:00 BP 128/78 01/15/25 07:00 Pulse Ox 99 01/15/25 06:56 O2 Del Method Room Air 01/15/25 06:38 Allergies Allergy/AdvReac Type Severity Reaction Status Date / Time No Known Allergies Allergy Verified 04/23/24 08:41 Home Medications Medication Instructions Recorded Confirmed Type vit#24-iron amino acid 1 tablet PO DAILY 04/18/23 01/15/25 History chelat-folic acid 30 mg-975 mcg tablet Laboratory Tests 01/15/25 06:23 WBC 9.6 K/mm3 (4.5-10.0) RBC 4.38 M/mm3 (4.2-5.4) Hgb 9.9 L D g/dL (12.0-15.0) Hct 34.1 L % (37.0-47.0) MCV 77.9 L fl (80-100) MCH 22.6 L pg (26-34) MCHC 29.0 L g/dl (32-36) RDW 14.4 % (11.5-14.5) Plt Count 222 k/mm3 (150-375) MPV 11.5 H fl (7.4-10.4) Immature Gran % (Auto) 0.4 % (0-0.5) Neut % (Auto) 63.2 % (45.5-73.1) Lymph % (Auto) 28.7 % (18.3-44.2) [place] % (Auto) 6.9 % (2.6-8.5) Eos % (Auto) 0.6 % (0-4.4) Baso % (Auto) 0.2 % (0.2-1.2) Lymph # (Auto) 2.76 K/mm3 (0.9-3.2) [place] # (Auto) 0.7 H K/mm3 (0.1-0.6) Eos # (Auto) 0.1 K/mm3 (0-0.3) Baso # (Auto) 0.0 K/mm3 (0.0-0.1) Abs Immat Gran (auto) 0.04 H K/mm3 (0.00-0.031) Absolute Neuts (auto) 6.1 K/mm3 (1.3-6.7) Absolute Nucleated RBC 0.000 K/mm3 (0.0-0.012) Band Neutrophils % Not Reportable Nucleated RBC % 0.0 % (0.0-0.2) Platelet Estimate Adequate (Adequate) Hypochromasia 1+ Schistocytes None seen HIV 1&2 Ab/P24 Ag 4thGn Pending Blood Type O Positive Antibody Screen Pending Patient hx anesthesia problems: none Family hx anesthesia problems: none Results Review: All pre-operative results and documents have been reviewed as part of the pre-operative evaluation. [facility] Past Medical History Medical History Anemia BMI 39.0-39.9,adult Elevated BP without diagnosis of hypertension Family History Family History (Updated 12/26/24 @ 14:31 by Yaz Rizzo RN) Grandparent Diabetes mellitus Social History Social History Smoking status: Never smoker Tobacco type: e-cigarettes/vaping Second hand tobacco smoke exposure: No Additional smoking assessment comments: 2 years of vaping Alcohol intake: current Alcohol use details: 1-4 drinks per week Substance use: never Do You Feel Safe in your Home?: Yes Lack of Transportation: No Lack of Food: Never True Current Housing: I Have Housing Concerned About Future Housing: No Difficulty Paying Gas/Electric Bills: No Difficulty Paying for Meds: No Currently Unemployed: No Education: High School Diploma/GED Difficulty w/ Childcare or Family Care: No Spiritual care concerns: No Exam Day of Procedure 01/15/25 07:07
[2025-01-15 07:17] LABS: Syphilis IgG/IgM Antibody Negative (Negative)
[2025-01-15 07:30] LABS: HIV 1/2 Ab P24 Ag Result Negative (Negative)
--- NOTE | 2025-01-15 07:32 | WPDOBADMIT ---
Obstetrics - Admit Note Admission Note: record reviewed. No pertinent additions to the history and/or any subsequent changes in the physical findings that are not consistent with the expected course of the were found. Additions to the history and/or subsequent changes in the physical findings follow. Admit for IOL hx LGA, dr vance aware
[2025-01-15] MEDS: metroNIDAZOLE 500 MG/ISO 100ML 500 MG/100 ML BAG 100 MG IVPB ×2 (09:03→15:05)
[2025-01-15] MEDS: SODIUM CHLORIDE 0.9% IV 300 ML 600 ML I-UTERINE (15:19)
--- NOTE | 2025-01-15 17:54 | PM.OBPRVD ---
OB - Vaginal Delivery Note Procedure Delivery date: 01/15/25 Events: Other (hx LGA, hx shoulde dystocia) Induction method: AROM and Per Pitocin Protocol Delivery monitor: External FHT and Internal Uterine Route of delivery: Episiotomy description: None Laceration Description: None Specimen: No Quantitative Blood Loss (ml): 100 Anesthesia type: Epidural Disposition: Floor Narrative: head delivered with loose nuchal x 1, reduced, rotated to XOCHITL, shoulder did not easily deliver but small movements were made with jerri, maual rotation, able to rotate and deliver the rest of the baby without difficulty. to warmer for evaluation
[2025-01-15] MEDS: OXYTOCIN 30 UNITS/NS 500 ML 30 UNITS/500 ML BAG 125 UNITS IV CONT (18:09)
[2025-01-15] MEDS: ACETAMINOPHEN 325 MG TABLET 650 MG PO (18:16)
--- NOTE | 2025-01-15 20:34 | OBPPTRN ---
Patient transferred to post room #283 via wheelchair. Support person- spouse Isaias present. Oriented to unit, room, information board, rooming in, admission packet and security measures. Patient verbalizes understanding.
[2025-01-16 03:30] VITALS: BP 118/64; PULSE 93; RESP 18; TEMP 36.6; O2SAT 99
[2025-01-16 04:21] LABS: Hemoglobin 8.8 g/dL (12.0-15.0)
[2025-01-16] MEDS: ACETAMINOPHEN 325 MG TABLET 650 MG PO ×2 (05:55→16:32)
[2025-01-16 07:30] VITALS: BP 117/70; PULSE 82; RESP 18; TEMP 36.9; O2SAT 100
--- NOTE | 2025-01-16 08:05 | P.PNOB_ITS ---
OB - PN: Subj Subjective Date/time seen: 01/16/25 08:05 Interval history: pp day 1 doing well desires d/c home OB - PN: Obj Data Labs 01/16/25 03:35 Labs: Laboratory Results - last 24 hr 01/16/25 03:35 Hgb 8.8 L Hct 30.0 L OB - PN A/P Plan day: 1 Plan: routine care and discharge home Time Spent With Patient Time: Total time spent is greater than 50% in coordination of care (as documented) at patient's floor/unit and/or counseling patient: Review of Systems 2 Review of Systems: All systems reviewed & are unremarkable except as noted in HPI and below Exam 2 Const: General: cooperative, healthy appearing and comfortable
--- NOTE | 2025-01-16 08:09 | P.DS_ITS ---
DS: Admitting Diagnosis Discharge Date Admitting Diagnosis IOL DS: Discharge Diagnosis Discharge Diagnosis (1) Vaginal delivery: Code(s): O80 - Encounter for full-term uncomplicated delivery Status: Acute OB - DS: Summary OB Procedures : None OB Procedures Intrapartum: Spontaneous Vag Delivery OB Procedures: : None Peripartum Data Laceration Description: None Episiotomy description: None Time Spent with Patient Time attestation: Total time spent providing and/or coordinating discharge services: DS: Data Data Completed and Pending Labs on day of discharge: Labs from last 24 hours 01/16/25 03:35 Hgb 8.8 L Hct 30.0 L Discharge Plan Discharge Attending physician on discharge: Vikas Louis Discharging Clinician: Chelsie Hebert Patient Disposition: Home Activity: pelvic rest Diet: regular Patient Instructions: Antibiotic Form Patient Language: Greek Stand Alone Forms: General Discharge Information Follow-up/Referrals: Chelsie Hebert, CNM [Certified Nurse Window Trimmer] - 4 Weeks Discharge Medications: Continued PNV no.29-[id number] acid 30-975 mg-mcg Tablet 1 tablet PO DAILY Date of admission: 01/15/25 05:53 Primary Care Provider: Carlene Poon Admitting Provider: Vikas Louis Attending physician on admission: Vikas Louis Condition: Stable
[2025-01-16] MEDS: DOCUSATE SODIUM 100 MG CAPSULE PO ×2 (09:54→16:32)
[2025-01-16] MEDS: POLYSACCHARIDE IRON COMPLEX 150 MG CAPSULE PO ×2 (09:54→16:32)
[2025-01-16 11:56] VITALS: BP 110/65; PULSE 86; RESP 16; TEMP 36.6; O2SAT 99
--- NOTE | 2025-01-16 13:51 | WPDANLDPN2 ---
Anes-Prog Note L&D Date/Time: 01/16/25 13:51 Comfortable throughout: labor and delivery Neuraxial method: epidural Epidural/Spinal procedure site: clean & non-tender Neuro status: Neuro function grossly intact. Cardiovascular status: normal Respiratory status: normal Airway patency: baseline Mental status: baseline Post-Op hydration status: normal Vital Signs: Last Vital Signs Temp 36.6 C 01/16/25 11:56 Pulse 86 01/16/25 11:56 Resp 16 01/16/25 11:56 BP 110/65 01/16/25 11:56 Pulse Ox 99 01/16/25 11:56 O2 Del Method Room Air 01/15/25 06:38 Pain score (VAS): 0/10 I/O: Intake & Output 01/15/25 01/16/25 01/16/25 23:59 07:59 15:59 Intake Total 1454.2 Output Total 100 Balance 1354.2 Post-procedural complaints: none Patient feedback: Patient satisfied with anesthetic care.
[2025-01-18 09:07] VITALS: BP 122/84; PULSE 92; RESP 16; TEMP 36.6; O2SAT 100
== END 2025-01-16 19:13 | disposition home or self-care (01) | DRG 807 ==
LOC: ANHLDR 05:57 → ANHOB2 21:00
PROVIDERS: Advanced Practice Midwife; Admitting Provider Obstetrics & Gynecology; PCP Nurse Practitioner Family; Visit Provider Obstetrics & Gynecology
DX: O36.63X0 Maternal care for excessive fetal growth, third trimester, not applicable or unspecified (principal); Z37.0 Single live birth; Z3A.39 39 weeks gestation of pregnancy; O66.0 Obstructed labor due to shoulder dystocia; O69.81X0 Labor and delivery complicated by cord around neck, without compression, not applicable or unspecified
CPT/HCPCS: 36415; 85014; 85018; 85025; 86593; 86703; 86850; 86900; 86901; A9270; G0432; J1836; J2590; J2795; J7030; J7120

== ENCOUNTER 2025-05-01 09:56 | Outpatient (CLI) | payer BC, SELFPAY ==
--- OUTSIDE RECORDS SUMMARY | 2025-05-01 10:05 | XMS_ITS | Clinical Summary ---
Author Organization [facility] Address [address] [place] [address] Care Team Providers Care Dinker Name Role Phone Unavailable Primary Care Provider Unavailabl e Source Comments [facility] [employer],non-owned Affiliates and Associated Physician Practices is amultiple site organization consisting of ambulatory clinics and hospital sitesin [place], [place], [place] and [place]. This disclosure is being madepursuant to the Care Everywhere program and may not contain all information available regarding this patient. Last updated 18.[facility] [employer] Allergies No known active allergies Medications * Be aware that medications may not be up to date on this document. Alwaysverify current medications with the patient. Vit-Fe Fumarate-FA ( vitamin) 28-0.8 MG tabletIndicatio ns: Take 1 (one) tablet by mouth once daily Reasons: Active Family History Medical History Relation Name Comments Diabetes - Type 2 Maternal Grandmother Relation Name Status Comments Maternal Grandmother Social History Tobacco Use Types Packs/Day Years Used Date Smoking Tobacco: Never Smokeless Tobacco: Never Tobacco Cessation:Counseling Given: Not Answered Alcohol Use Standard Drinks/Week Comments Not Currently 0 (1 standard drink = 0.6 oz pur e alcohol) Comments No Sex and Gender Information Value Date Recorded [...] 10:58 AM CDT Height 170.2 cm (5' 7) 11/20/2024 10:58 AM CDT Body Mass Index 37.9 11/20/2024 10:58 AM CDT Plan of Treatment Health Maintenance Due Date Last Done Comments HPV VACCINE (1 - 3-dose series) 2018 CHLAMYDIA/GONORRHEA SCREENING 2019 MENINGOCOCCAL (Group B) VACC INE SHARED DECISION-MAKING (1 of 2 - Standard) 2019 HEPATITIS C SCREENING 07/17/2021 DTAP/TDAP/TD VACCINES (1 - Tdap) 2022 HEPATITIS B VACCINE (1 of 3 - 19+ 3-dose series) 2022 COVID-19 VACCINE (1 - 2023-2 5 season) 2024 PAP SMEAR 2024 DEPRESSION SCREENING 09/04/2024 INFLUENZA VACCINE (#1) 2025 ZOSTER VACCINE (1 of 2) 2053 HIV SCREENING Completed 10/29/2024 HIB VACCINE Aged Out No longer eligi ble based on patient's age to complete this topic MENINGOCOCCAL GROUPS A/C/Y/W VACCINE Aged Out No longer eligible b ased on patient's age to complete this topic PNEUMOCOCCAL VACCINE Aged Out No long er eligible based on patient's age to complete this topic Insurance [facility]
[2025-05-01 10:10] LABS: Hematocrit 39.1 % (37.0-47.0); Hemoglobin 12.3 g/dL (12.0-15.0); Immature Granulocyte Percent A 0.1 % (0-0.5); Lymphocytes Absolute Auto 2.80 K/mm3 (0.9-3.2); Mean Corpuscular HGB Conc 31.5 g/dl (32-36); Mean Corpuscular Hemoglobin 25.4 pg (26-34); Mean Corpuscular Volume 80.6 fl (80-100); Nucleated Red Blood Cells Absolute Auto 0.000 K/mm3 (0.0-0.012); Nucleated Red Blood Cells Perc 0.0 % (0.0-0.2); Platelet Count Result 278 k/mm3 (150-375); Red Blood Count 4.85 M/mm3 (4.2-5.4); White Blood Count 7.0 K/mm3 (4.5-10.0)
[2025-05-01 10:28] LABS: Add Urine Microscopic? YES; Appearance Urine Clear (Clear); Glucose Urine UA Negative (Negative); Leukocyte Esterase Ur 1+ LEU/UL (Negative); Nitrate Urine Negative (Negative); Non Pathogenic Casts 0-2; Specific Grav Ur 1.020 (1.001-1.035)
[2025-05-01 10:31] LABS: Iron 71 ug/dL (37-170)
[2025-05-01 10:33] LABS: Alanine Aminotransferase 25 U/L (6-35); Albumin Level 4.5 g/dL (3.5-5.1); Alkaline Phosphatase 76 U/L (38-126); Anion Gap 10 mmol/L (4-12); Aspartate Amino Transferase 36 U/L (14-36); Bilirubin,Total 0.5 mg/dL (0.2-1.3); Blood Urea Nitrogen 12 mg/dL (7-17); Calcium 9.7 mg/dL (8.4-10.2); Carbon Dioxide 24 mmol/L (22-30); Chloride 105 mmol/L (98-107); Cholesterol 230 mg/dL (0-200); Estimated Glomerular Filt Rate > 60; Glucose 87 mg/dL (65-110); HDL Direct 44 mg/dL; Potassium 4.3 mmol/L (3.4-5.0); Sodium 139 mmol/L (137-145); Total Protein 8.3 g/dL (6.3-8.2); Triglycerides 419 mg/dL (<150)
[2025-05-01 10:40] LABS: Percent Iron Saturation 14 % (20-50)
[2025-05-01 11:05] LABS: Hemoglobin A1C 5.0 % (<5.7)
[2025-05-01 11:08] LABS: Thyroid Stimulating Hormone Reflex 1.810 uIU/mL (0.465-4.68)
[2025-05-01 11:12] LABS: Ferritin 16.20 ng/mL (6.24-137)
== END 2025-05-01 09:57 | disposition home or self-care (01) ==
LOC: ANHLAB 09:58
PROVIDERS: PCP Nurse Practitioner Family; Visit Provider Nurse Practitioner Family
DX: D64.9 Anemia, unspecified (principal); Z13.1 Encounter for screening for diabetes mellitus; Z68.38 Body mass index [BMI] 38.0-38.9, adult; Z00.00 Encounter for general adult medical examination without abnormal findings; Z13.6 Encounter for screening for cardiovascular disorders; Z13.29 Encounter for screening for other suspected endocrine disorder
CPT/HCPCS: 36415; 80053; 80061; 81001; 82728; 83036; 83540; 83550; 84443; 85025